=== PATIENT | female | born 1960 | race Caucasian/White ===

== ENCOUNTER → 2017-02-18 | Outpatient (CLI) | payer OTHER ==
[~2017-02-18] MED LIST: ALBU90OI INH; ALBU90OI6 INH; ALPR1; ALPR1 PO; ARIP30 PO; ASPI81CH; ASPI81EC PO; Alprazolam2 MG; BUPR150ER; BUSP10; BUTASPCAFT PO; Bactrim Ds Tab1 EACH PO; CEPH500 PO; CLON.5 PO; CLON1 PO; CLONAZEPAM1 GM; CYCL10 PO; DESV50 PO; DICL75ER PO; DULO60; Diclofenac Sodi25 MG PO; ERGO50000 PO; GABA300 PO; HYDACE10B; HYDACE10B PO; HYDACE5 PO; HYDACE5325 PO; LEVFLO500 PO; LORA1 PO; METF500C PO; METPRE4DP PO; MIRT30ST; MISO100 PO; MISO200 PO; MONT10T PO; NICO7; OLAN2.5 PO; OXYC10ER; OXYC10ER PO; OXYC15ER; PIOG15 PO; PIOG30 PO; PIOG45 PO; POTA10T PO; PRAZ1 PO; PRAZ2 PO; PRAZ5 PO; PROM25 PO; ROXICODONE5 MG PO; RXHYD5325 PO; RXLORA1 PO; Risperdal PO; Roxicodone5 MG PO; SIMV10; SIMV40 PO; SIMV5 PO; Seroquel50 MG PO; TRAM50 PO; Valium5 MG PO; Xanax PO; Zofran Odt4 MG PO
== END | disposition home or self-care (01) ==
LOC: LAB SHORT 13:45
DX: N39.0 Urinary tract infection, site not specified (principal)
CPT/HCPCS: 87086

== ENCOUNTER 2017-03-11 11:01 | Emergency (ER) | payer OTHER ==
[~2017-03-11] VITALS: Ht 162.6 cm; Wt 104.3 kg
[~2017-03-11 11:01] MED LIST changes: -Zofran Odt4 MG PO
[2017-03-11 11:43] LABS: BASOPHILS ABSOLUTE AUTO 0.05 K/mm3 (0.00-0.23); BASOPHILS PERCENT AUTO 1 % (0-2); EOSINOPHILS ABSOLUTE AUTO 0.12 K/mm3 (0.00-0.68); EOSINOPHILS PERCENT AUTO 1 % (0-6); Hemoglobin 14.1 g/dL (11.5-16.0); IMMATURE GRAN ABSOLUTE AUTO 0.03 K/mm3 (0.00-0.10); IMMATURE GRAN PERCENT AUTO 0 % (0-1); LYMPHOCYTES ABSOLUTE AUTO 2.73 K/mm3 (0.84-5.20); LYMPHOCYTES PERCENT AUTO 32 % (21-46); MONOCYTES ABSOLUTE AUTO 0.59 K/mm3 (0.16-1.47); MONOCYTES PERCENT AUTO 7 % (4-13); Mean Corpuscular HGB 32.4 pg (26.0-34.0); Mean Corpuscular HGB Conc 34.4 g/dL (31.5-36.5); Mean Corpuscular Volume 94 fL (80-100); NEUTROPHILS ABSOLUTE AUTO 5.05 K/mm3 (1.96-9.15); NEUTROPHILS PERCENT AUTO 59 % (41-73); Platelet Count 270 K/mm3 (150-400); RDW Coefficient Variation 12.2 % (11.7-14.2); RDW Standard Deviation 42.7 fL (35.1-46.3); Red Blood Cell Count 4.35 M/mm3 (3.80-5.20); White Blood Cell Count 8.57 K/mm3 (4.00-11.30)
[2017-03-11 12:06] LABS: Alanine Aminotransfer (ALT/SGP 25 U/L (12-78); Albumin, Blood 3.9 g/dL (3.4-5.0); Alk Phos 96 U/L (50-136); Anion Gap 13 mmol/L (6-16); Aspartate Aminotrans (AST/SGOT 25 U/L (12-37); Bilirubin, Total 0.6 mg/dL (0.1-1.0); Blood Urea Nitrogen 31 mg/dL (8-24); Bun/Creatinine Ratio 33.3 (12.0-20.0); CO2, Blood 20 mmol/L (21-32); Chloride, Blood 102 mmol/L (98-108); Creatinine, Blood 0.93 mg/dL (0.40-1.00); Globulin, Blood 4.1 g/dL (2.2-4.0); Glomerular Filtration Rate >60 (60-); Glucose, Blood 102 mg/dL (70-99); Potassium, Blood 4.4 mmol/L (3.5-5.5); Sodium, Blood 135 mmol/L (136-145)
[2017-03-11] MEDS ORDERED: Zofran Odt4 MG PO (12:29)
== END 2017-03-11 12:46 | disposition home or self-care (01) ==
LOC: ER 11:01
PROVIDERS: Emergency Medicine
DX: E86.0 Dehydration (principal); R11.2 Nausea with vomiting, unspecified; R19.7 Diarrhea, unspecified; F41.9 Anxiety disorder, unspecified; E11.9 Type 2 diabetes mellitus without complications; F32.9 Major depressive disorder, single episode, unspecified; Z85.3 Personal history of malignant neoplasm of breast; Z88.0 Allergy status to penicillin; Z88.5 Allergy status to narcotic agent; Z91.013 Allergy to seafood; Z88.8 Allergy status to other drugs, medicaments and biological substances; Z79.899 Other long term (current) drug therapy; Z79.84 Long term (current) use of oral hypoglycemic drugs; Z79.82 Long term (current) use of aspirin
CPT/HCPCS: 36415; 80053; 83690; 85025; 96361; 96374; 99283; J2405; J7030

== ENCOUNTER 2018-03-08 12:49 | Emergency (ER) | payer OTHER ==
[~2018-03-08] VITALS: Ht 172.7 cm; Wt 108.4 kg
[~2018-03-08 12:49] MED LIST changes: +Zofran Odt4 MG PO
[2018-03-08 13:32] LABS: BASOPHILS ABSOLUTE AUTO 0.05 K/mm3 (0.00-0.23); BASOPHILS PERCENT AUTO 0 % (0-2); EOSINOPHILS ABSOLUTE AUTO 0.16 K/mm3 (0.00-0.68); EOSINOPHILS PERCENT AUTO 1 % (0-6); Hematocrit 42.5 % (33.0-51.0); Hemoglobin 14.1 g/dL (11.5-16.0); IMMATURE GRAN ABSOLUTE AUTO 0.04 K/mm3 (0.00-0.10); IMMATURE GRAN PERCENT AUTO 0 % (0-1); LYMPHOCYTES ABSOLUTE AUTO 4.26 K/mm3 (0.84-5.20); LYMPHOCYTES PERCENT AUTO 34 % (21-46); MONOCYTES PERCENT AUTO 8 % (4-13); Mean Corpuscular HGB 32.5 pg (26.0-34.0); Mean Corpuscular HGB Conc 33.2 g/dL (31.5-36.5); Mean Corpuscular Volume 98 fL (80-100); Mean Platelet Volume 10.2 fL (9.1-12.4); NEUTROPHILS ABSOLUTE AUTO 7.22 K/mm3 (1.96-9.15); NEUTROPHILS PERCENT AUTO 57 % (41-73); Platelet Count 245 K/mm3 (150-400); RDW Standard Deviation 43.8 fL (35.1-46.3); Red Blood Cell Count 4.34 M/mm3 (3.80-5.20); White Blood Cell Count 12.73 K/mm3 (4.00-11.30)
[2018-03-08 13:48] LABS: Alanine Aminotransfer (ALT/SGP 23 U/L (12-78); Albumin, Blood 3.9 g/dL (3.4-5.0); Albumin/Globulin Ratio 0.9 (0.8-1.8); Alk Phos 103 U/L (50-136); Anion Gap 10 mmol/L (6-16); Aspartate Aminotrans (AST/SGOT 18 U/L (12-37); Bilirubin, Total 0.4 mg/dL (0.1-1.0); Blood Urea Nitrogen 20 mg/dL (8-24); Bun/Creatinine Ratio 20.6 (12.0-20.0); CO2, Blood 23 mmol/L (21-32); Calcium, Blood 9.1 mg/dL (8.5-10.1); Chloride, Blood 105 mmol/L (98-108); Creatinine, Blood 0.97 mg/dL (0.40-1.00); Ethanol (Alcohol), Blood, Med <3 mg/dL; Globulin, Blood 4.3 g/dL (2.2-4.0); Glomerular Filtration Rate >60 (60-); Glucose, Blood 137 mg/dL (70-99); Potassium, Blood 3.8 mmol/L (3.5-5.5); Sodium, Blood 138 mmol/L (136-145); Total Protein, Blood 8.2 g/dL (6.4-8.2)
[2018-03-08 13:52] LABS: Salicylate 3.1 mg/dL (2.8-20.0)
[2018-03-08 13:56] LABS: Acetaminophen, Random <2.0 ug/mL (10.0-30.0)
[2018-03-08 14:01] LABS: Source, Urine Clean Catch
[2018-03-08 14:21] LABS: Appearance, Urine Hazy (Clear); Blood, Urine 5+ (Neg); Color, Urine Yellow (P-Yellow); Glucose Qualitative, Urine Neg (Neg); Ketones, Urine 1+ (Neg); Leukocyte Esterase, Urine 2+ (Neg); Nitrite, Urine Pos (Neg); Protein, Urine 2+ (Neg); Specific Gravity, Urine 1.025 (1.003-1.022); Urobilinogen, Urine NORM (Normal)
[2018-03-08 14:56] LABS: U Amphetamine Screen DETECTED; U Barbituate Screen Not Detected; U Methamphetamine Screen DETECTED
[2018-03-08 14:57] LABS: U Benzodiazapine Screen DETECTED; U Buprenorphine Screen Not Detected; U Cannabinoids Screen Not Detected; U Cocaine Screen Not Detected; U Methadone Screen Not Detected; U Opiates Screen Not Detected; U Oxycodone Screen Not Detected; U Phencyclidine Screen Not Detected; U Propoxyphene Screen Not Detected
[2018-03-08 15:00] LABS: Bilirubin, Urine 1+ (Neg)
[2018-03-08 15:02] LABS: White Blood Cells, Urine 25-50 /hpf (0-5)
[2018-03-08 15:03] LABS: Bacteria Many /hpf; Squamous Epithelial Cells Few /hpf (Few)
[2018-03-08] MEDS ORDERED: Keflex500 MG PO (15:21)
== END 2018-03-08 15:30 | disposition home or self-care (01) ==
LOC: ER 12:49
PROVIDERS: Physician Assistant
DX: N39.0 Urinary tract infection, site not specified (principal); F41.9 Anxiety disorder, unspecified; Z88.0 Allergy status to penicillin; Z88.5 Allergy status to narcotic agent; Z91.013 Allergy to seafood; Z79.899 Other long term (current) drug therapy; Z79.84 Long term (current) use of oral hypoglycemic drugs; Z79.82 Long term (current) use of aspirin; G43.909 Migraine, unspecified, not intractable, without status migrainosus; Z85.3 Personal history of malignant neoplasm of breast; E11.9 Type 2 diabetes mellitus without complications; F32.9 Major depressive disorder, single episode, unspecified; F43.10 Post-traumatic stress disorder, unspecified; F17.210 Nicotine dependence, cigarettes, uncomplicated
CPT/HCPCS: 36415; 80053; 81001; 81025; 84443; 85025; 87077; 87086; 87186; 99284; G0480; Q3014

== ENCOUNTER → 2021-04-25 | Outpatient (CLI) | payer OTHER ==
[~2021-04-25] MED LIST changes: +Keflex500 MG PO
== END ==
LOC: LAB SHORT 14:40
DX: N39.0 Urinary tract infection, site not specified (principal)
CPT/HCPCS: 87077; 87086; 87186

== ENCOUNTER → 2021-05-14 | Outpatient (CLI) | payer OTHER ==
[2021-05-14 20:32] LABS: Alanine Aminotransfer (ALT/SGP 26 U/L (12-78); Albumin, Blood 3.7 g/dL (3.4-5.0); Albumin/Globulin Ratio 0.9 (0.8-1.8); Alk Phos 112 U/L (50-136); Anion Gap 8 mmol/L (6-16); Aspartate Aminotrans (AST/SGOT 20 U/L (12-37); Bilirubin, Total 0.2 mg/dL (0.1-1.0); Blood Urea Nitrogen 35 mg/dL (8-24); Bun/Creatinine Ratio 36.2 (12.0-20.0); CHOL/HDL RATIO 2.5; CO2, Blood 26 mmol/L (21-32); Calcium, Blood 8.8 mg/dL (8.5-10.1); Chloride, Blood 106 mmol/L (98-108); Cholesterol 140 mg/dL (50-200); Creatinine, Blood 0.97 mg/dL (0.40-1.00); Glomerular Filtration Rate 58 (60-); Glucose, Blood 209 mg/dL (70-99); HDL Cholesterol 55 mg/dL (>39); Low Density Lipoprotein Chol 53 mg/dL (0-110); Potassium, Blood 4.5 mmol/L (3.5-5.5); Sodium, Blood 140 mmol/L (136-145); Total Protein, Blood 7.7 g/dL (6.4-8.2); Triglycerides 161 mg/dL (30-160); Very Low Density Lipoprot Chol 32 mg/dL (6-32)
== END | disposition home or self-care (01) ==
LOC: LAB SHORT 11:10
PROVIDERS: Internal Medicine
DX: E78.2 Mixed hyperlipidemia (principal); E11.9 Type 2 diabetes mellitus without complications
CPT/HCPCS: 80053; 80061; 82043; 83036

== ENCOUNTER → 2021-05-30 | Outpatient (CLI) | payer OTHER | END | disposition home or self-care (01) | LOC: LAB 19:21 → LAB SHORT 19:21 | DX: N39.0 Urinary tract infection, site not specified (principal) | CPT/HCPCS: 87077; 87086; 87186 ==

== ENCOUNTER 2021-07-13 15:11 | Inpatient (IN) | payer OTHER ==
[~2021-07-13] VITALS: Ht 175.3 cm; Wt 98.1 kg
[~2021-07-13 15:11] MED LIST changes: -Alprazolam2 MG; +Alprazolam2 MG PO
--- NOTE | 2021-07-13 19:15 | NUR ---
RECEIVED REPORT AND ASSUMED CARE OF PT. SHE IS LYING IN BED WITH HER RIGHT FOOT ELEVATED, SPLINT IN PLACE. PT IS VERBOSE AND SPEAKS FREQUENTLY OF HER PAST, REDIRECTABLE. CALL LIGHT IN REACH.
[2021-07-13] MEDS ORDERED: Cetirizine HCl10 MG PO (19:59)
[2021-07-13 21:30] LABS: BASOPHILS ABSOLUTE AUTO 0.03 K/mm3 (0.00-0.23); BASOPHILS PERCENT AUTO 0 % (0-2); EOSINOPHILS ABSOLUTE AUTO 0.12 K/mm3 (0.00-0.68); EOSINOPHILS PERCENT AUTO 1 % (0-6); Hematocrit 37.9 % (33.0-51.0); Hemoglobin 12.6 g/dL (11.5-16.0); IMMATURE GRAN ABSOLUTE AUTO 0.02 K/mm3 (0.00-0.10); IMMATURE GRAN PERCENT AUTO 0 % (0-1); LYMPHOCYTES ABSOLUTE AUTO 2.35 K/mm3 (0.84-5.20); LYMPHOCYTES PERCENT AUTO 27 % (21-46); MONOCYTES ABSOLUTE AUTO 0.78 K/mm3 (0.16-1.47); MONOCYTES PERCENT AUTO 9 % (4-13); Mean Corpuscular HGB 31.9 pg (26.0-34.0); Mean Corpuscular HGB Conc 33.2 g/dL (31.5-36.5); Mean Corpuscular Volume 96 fL (80-100); NEUTROPHILS ABSOLUTE AUTO 5.29 K/mm3 (1.96-9.15); NEUTROPHILS PERCENT AUTO 62 % (41-73); Platelet Count 191 K/mm3 (150-400); RDW Coefficient Variation 12.7 % (11.7-14.2); RDW Standard Deviation 44.9 fL (35.1-46.3); Red Blood Cell Count 3.95 M/mm3 (3.80-5.20); White Blood Cell Count 8.59 K/mm3 (4.00-11.30)
[2021-07-13 21:47] LABS: Albumin, Blood 3.4 g/dL (3.4-5.0); Albumin/Globulin Ratio 0.9 (0.8-1.8); Bilirubin, Total 0.4 mg/dL (0.1-1.0); Bun/Creatinine Ratio 23.6 (12.0-20.0); Calcium, Blood 9.3 mg/dL (8.5-10.1); Creatinine, Blood 0.89 mg/dL (0.40-1.00); Globulin, Blood 3.8 g/dL (2.2-4.0); Potassium, Blood 3.5 mmol/L (3.5-5.5); Total Protein, Blood 7.2 g/dL (6.4-8.2)
[2021-07-13] MEDS ORDERED: FLUTICASONE PRO16 GM (22:42)
[2021-07-13] MEDS ORDERED: Simvastatin40 MG PO (22:44)
[2021-07-13] MEDS ORDERED: GABAPENTIN600 MG PO (22:51)
[2021-07-14 01:29] LABS: U Amphetamine Screen DETECTED; U Barbituate Screen Not Detected; U Benzodiazapine Screen DETECTED; U Buprenorphine Screen Not Detected; U Cannabinoids Screen Not Detected; U Cocaine Screen Not Detected; U Methadone Screen Not Detected; U Methamphetamine Screen DETECTED; U Opiates Screen Not Detected; U Oxycodone Screen DETECTED; U Phencyclidine Screen Not Detected; U Propoxyphene Screen Not Detected
[2021-07-14 02:46] LABS: SARS-Cov-2 (COVID-19) PCR, MMC NEGATIVE (NEGATIVE)
--- NOTE | 2021-07-14 04:50 | NUR ---
PT ATTEMPTED TO GET OUT OF BED ON HER OWN. SLURRED SPEECH NOTED, NO FOCAL DEFICITS, ABLE TO FOLLOW DIRECTIONS, MOVE ALL EXTREMITIES, AND ASSIST STAFF TO GET ON AND OFF OF BEDPAN AND CHANGE LINENS. VSS. ON-CALL PHYSICIAN NOTIFIED, ORDER OBTAINED FOR VENOUS BLOOD GAS AND TO HOLD MEDICATIONS UNTIL SPEECH CLEARS.
[2021-07-14 05:04] LABS: Bilirubin, Urine Neg (Neg); Blood, Urine 2+ (Neg); Glucose Qualitative, Urine 2+ (Neg); Ketones, Urine Neg (Neg); Leukocyte Esterase, Urine 1+ (Neg); Nitrite, Urine Neg (Neg); Protein, Urine 1+ (Neg); Specific Gravity, Urine 1.025 (1.003-1.022); Urobilinogen, Urine NORM (Normal)
[2021-07-14 05:25] LABS: Appearance, Urine Cloudy (Clear); Color, Urine Yellow (P-Yellow); Squamous Epithelial Cells Not Seen /hpf (Few)
[2021-07-14 05:26] LABS: Amorphous Mod (0-Heavy); Bacteria Mod /hpf; Mucus Light (0-Heavy)
[2021-07-14 06:07] LABS: Base Excess Venous 1.1 mmol/L; Bicarbonate Venous 24.7 mmol/L (24.0-30.0); PCO2 Venous 49.3 mmHg (38-42); PO2 Venous 69.8 mmHg (38-42); pH Blood Venous 7.34 (7.34-7.37)
--- NOTE | 2021-07-14 06:34 | NUR ---
SHIFT SUMMARY: KELSIE AROUSES TO VOICE AND RESPONDS APPROPRIATELY, HOWEVER HER SPEECH IS OCCASIONALLY SLURRED, FOLLOWS COMMANDS. SHE WAS MADE NPO SHORTLY AFTER MIDNIGHT, TOLERATED REGULAR DIET WELL UP UNTIL THAT TIME. SPLINT IN PLACE TO RLE, PT REPORTS "BLISTERS" ON AND AROUND HER RIGHT ANKLE, UNABLE TO VISUALIZE D/T SPLINT. IV TO RIGHT FOREARM PATENT. SHE IS LYING IN BED WITH HER EYES CLOSED AND EVEN, UNLABORED RESPRIATIONS. BED ALARM FOR SAFETY. SHE HAS USED THE BEDPAN DURING THE NIGHT, DENIES ANY DIFFICULTIES URINATING. CALL LIGHT IN REACH. WILL REPORT TO DAY SHIFT RN.
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
--- NOTE | 2021-07-14 18:25 | NUR ---
SHIFT SUMMARY A&OX4/NOT CONFUSED AT THIS TIME & PLEASANT & COOPERATIVE WITH CARE. VSS/RA/CBGS LSS, TATIANA PO, PAIN MANAGED, VOIDING/ATTENDS ON/INCONTINENT, BEDREST/REPOSITIONS SELF WELL. DR KLEIN CONSULTED, REDRESSED R ANKLE WITH SPLINT, PICS ON CHART OF MEDIAL AND LATERAL ANKLE BLISTERS AND BRUISES. PLAN FOR NPO WEDNESDAY MIDNIGHT FOR POSS SURGERY WEDNESDAY. WILL REPORT TO ONCOMING NOC RN.
--- NOTE | 2021-07-14 22:45 | NUR ---
PT STATES THAT SHE HAS HAD "EPISODES", WITNESSED BY A FRIEND, WHERE SHE EXHIBITS "DEMENTIA". WHEN ASKED TO ELABORATE FURTHER, PT STATED THAT SHE SLEEPWALKS SOMETIMES. DISCUSSED THE EPISODE OF CONFUSION SHE EXPERIENCED LAST NIGHT WELL HER MEDICATIONS. PT AGREEABLE TO TRIAL TAKING ONLY SEROQUEL AND PAIN MEDICATION TONIGHT.
--- NOTE | 2021-07-15 07:59 | NUR ---
SHIFT SUMMARY: KELSIE RESTED INTERMITTENTLY DURING THE SHIFT, CALLED APPROPRIATELY FOR THE BED STONE, AND IS TOLERATING PO INTAKE WELL. IV TO R FOREARM PATENT. SPLINT C/D&I, ABLE TO WIGGLE TOES, BRISK CAPILLARY REFILL. SHE DID NOT EXHIBIT ANY EPISODES OF CONFUSION THIS SHIFT. SHE IS LYING IN BED WITH THE CALL LIGHT IN REACH. REPORT GIVEN TO DAY SHIFT RN.
--- NOTE | 2021-07-15 13:57 | NUR ---
Dr Anisha luna, spoke with this RN and senior care manager Nay regarding scheduled surgery tomorrow and care plan after.
--- NOTE | 2021-07-15 17:13 | NUR ---
SHIFT SUMMARY: VSS, NO ACUTE CHANGES, PT REMAINS A/O X 4, PLEASANT/COOPERATIVE, DROWSY T/O THE DAY, SLEPT. RLE TOES WARM WITH CAPILLARY REFIL <3 SECONDS, ABLE TO WIGGLE TOES. SHE REPORTS SHE HAS NOT SLEPT WELL THE PREVIOUS FEW DAYS. PT TOLERATED PO INTAKE WELL, VOIDED WELL WITH BED STONE. PT REPORTS PAIN CONTROLLED TO THE POINT SHE IS ABLE TO SLEEP PER MAR. PT WILL BE NPO AT MIDNIGHT FOR EXPECTED SURGICAL REPAIN TOMORROW.
[2021-07-16 04:39] LABS: BASOPHILS ABSOLUTE AUTO 0.03 K/mm3 (0.00-0.23); BASOPHILS PERCENT AUTO 0 % (0-2); EOSINOPHILS ABSOLUTE AUTO 0.26 K/mm3 (0.00-0.68); EOSINOPHILS PERCENT AUTO 4 % (0-6); Hemoglobin 12.5 g/dL (11.5-16.0); IMMATURE GRAN ABSOLUTE AUTO 0.01 K/mm3 (0.00-0.10); IMMATURE GRAN PERCENT AUTO 0 % (0-1); LYMPHOCYTES ABSOLUTE AUTO 2.58 K/mm3 (0.84-5.20); LYMPHOCYTES PERCENT AUTO 38 % (21-46); MONOCYTES PERCENT AUTO 9 % (4-13); Mean Corpuscular HGB 32.3 pg (26.0-34.0); Mean Corpuscular HGB Conc 32.1 g/dL (31.5-36.5); Mean Platelet Volume 11.2 fL (9.1-12.4); NEUTROPHILS ABSOLUTE AUTO 3.39 K/mm3 (1.96-9.15); NEUTROPHILS PERCENT AUTO 49 % (41-73); Platelet Count 182 K/mm3 (150-400); RDW Coefficient Variation 12.9 % (11.7-14.2); RDW Standard Deviation 47.9 fL (35.1-46.3); Red Blood Cell Count 3.87 M/mm3 (3.80-5.20); White Blood Cell Count 6.87 K/mm3 (4.00-11.30)
[2021-07-16 04:42] LABS: Mean Corpuscular Volume 101 fL (80-100)
[2021-07-16 04:53] LABS: Bun/Creatinine Ratio 29.2 (12.0-20.0); Calcium, Blood 9.2 mg/dL (8.5-10.1); Creatinine, Blood 0.72 mg/dL (0.40-1.00)
--- NOTE | 2021-07-16 05:05 | NUR ---
SUMMARY NO NEW ISSUES. PT PAIN MANGED WELL T/OUT SHIFT. PT HAS BEEN NPO SINCE 0000 HRS. PT CURRENTLY AWAKE IN NO DISTRESS. CALL LIGHTIN REACH.
--- NOTE | 2021-07-16 15:21 | NUR ---
PATIENT IS LEAVING FOR THE OR.
--- NOTE | 2021-07-16 15:38 | NUR ---
DR KLEIN NOTIFIED PT THAT HER SURGERY IS ON HOLD DUE TO A MORE EMERGENT CASE. PT WILL BE TRANSPORTED BACK TO ROOM
--- NOTE | 2021-07-16 16:00 | NUR ---
SHIFT SUMMARY: RIGHT ANKLE FX PATIENT WAS SUPPOSED TO GO TO THE OR BUT AN EMERGENCY CAME UP SO THEY WILL BE DOING THE SURGERY TOMORROW. RIGHT ANKLE IS IN A CAST WITH BING WRAP THAT IS C/D/I. PATIENT DENIES NUMBNESS AND TINGLING. CAN MOVE FINGERS AND TOES. PATIENT IS TOLERATING PO INTAKE AND IS VOIDING. PATIENT IS TEARFUL AND STATING "I WISH IT COULD BE DONE AND OVER WITH ALREADY". DANA IS IN THE ROOM AT THIS TIME. CALLS APPROPRIATELY. PAIN IS MANAGED WITH 50 MCG OF FENT AND 2 PERCOCETS. CALL LIGHT WITHIN REACH. THE PLAN IS TO BE NPO AT MIDNIGHT TONIGHT AND WILL HAVE THE SURGERY TOMORROW.
--- NOTE | 2021-07-16 16:31 | NUR ---
Pt is lying in bed and crying. Pt tells me about her anxiety and how stressed she has been about the surgery and her struggles with feeling rejected. I provide therapeutic listening, anxiety containment, levety, gentle counselor nurses' association and prayer. Pt responds well and is laughing and voicing much appreciation for the time and care. I will continue to remain available.
--- NOTE | 2021-07-17 03:55 | NUR ---
SUMMARY NO NEW ISSUES NOTED. PT DISCOMFORT TX PER EMAR WITH RELIEF. PT HAS BEEN VOIDING WELL. PT HAS BEEN NPO SINCE 000 HRS. PT CALL LIGHT IN REACH.
[2021-07-17 05:15] LABS: BASOPHILS ABSOLUTE AUTO 0.05 K/mm3 (0.00-0.23); BASOPHILS PERCENT AUTO 1 % (0-2); EOSINOPHILS ABSOLUTE AUTO 0.26 K/mm3 (0.00-0.68); EOSINOPHILS PERCENT AUTO 4 % (0-6); Hematocrit 39.7 % (33.0-51.0); Hemoglobin 12.4 g/dL (11.5-16.0); IMMATURE GRAN ABSOLUTE AUTO 0.01 K/mm3 (0.00-0.10); IMMATURE GRAN PERCENT AUTO 0 % (0-1); LYMPHOCYTES ABSOLUTE AUTO 2.53 K/mm3 (0.84-5.20); LYMPHOCYTES PERCENT AUTO 37 % (21-46); MONOCYTES ABSOLUTE AUTO 0.57 K/mm3 (0.16-1.47); MONOCYTES PERCENT AUTO 8 % (4-13); Mean Corpuscular HGB 31.9 pg (26.0-34.0); Mean Corpuscular HGB Conc 31.2 g/dL (31.5-36.5); Mean Corpuscular Volume 102 fL (80-100); Mean Platelet Volume 11.1 fL (9.1-12.4); NEUTROPHILS ABSOLUTE AUTO 3.37 K/mm3 (1.96-9.15); NEUTROPHILS PERCENT AUTO 50 % (41-73); Platelet Count 199 K/mm3 (150-400); RDW Coefficient Variation 12.6 % (11.7-14.2); RDW Standard Deviation 47.7 fL (35.1-46.3); Red Blood Cell Count 3.89 M/mm3 (3.80-5.20); White Blood Cell Count 6.79 K/mm3 (4.00-11.30)
[2021-07-17 05:47] LABS: Bun/Creatinine Ratio 28.5 (12.0-20.0); Calcium, Blood 9.1 mg/dL (8.5-10.1); Creatinine, Blood 0.81 mg/dL (0.40-1.00); Potassium, Blood 4.2 mmol/L (3.5-5.5)
--- NOTE | 2021-07-17 16:32 | NUR ---
Patient was anxious upon entering the rm. Therapeutic listening and prayer are provided. Pt shows signs of increased peace.
--- NOTE | 2021-07-17 17:45 | NUR ---
SHIFT SUMMARY PT A/O X3; PLEASANT AND COOPERATIVE WITH CARE. DR. WINCHESTER CONSULTED THE PATIENT AND DRAINED FOOT BLISTER AT BEDSIDE. DR. WINCHESTER RECOMMENDS DELAYING THE SURGERY SO THE BLISTER CAN HEAL BEFORE PROCEEDING. PT IS AGREEABLE TO THIS. BING WRAP AND GAUZE DRESSING IN PLACE TO THE R FOOT, CDI. R LEG ELEVATED. VSS.
--- NOTE | 2021-07-18 05:23 | NUR ---
SUMMARY NO NEW ISSUES NOTED. PT PAIN MANAGED WELL T/OUT SHIFT. PT HAS BEEN VOIDING WELL AND TAKING IN PO FLUIDS. PT IN GOOD SPIRITS. PT CURRENTLY SLEEPING IN NO DISTRESS. CALL LIGHT IN REACH.
--- NOTE | 2021-07-18 19:13 | NUR ---
SHIFT SUMMARY: RIGHT ANKLE FX NO SIGNIFICANT CHANGES. A&OX4. PAIN IS MANAGED WITH 2 PERCOCETS. RIGHT ANKLE IS IN A CAST AND BING WRAP THAT IS C/D/I. DENIES NUMBNESS AND TINGLING. CAN MOVE FINGERS AND TOES. TOLERATING PO INTAKE AND IS VOIDING. PATIENT TOLERATES BEDPAN FOR THE BATHROOM. CALLS APPROPRIATELY. PATIENT DID WORK WITH PT TODAY AND WAS A 1-2 PERSON ASSIST WITH FWW AND GAIT BELT WITH A STAND PIVOT. PATIENT IS NON WT BEARING ON RIGHT FOOT. CALL LIGHT WITHIN REACH. THE PLAN IS TO HAVE SURGERY ON HER RIGHT ANKLE SOMETIME NEXT WEEK. WILL CONTINUE PAIN MANAGEMENT.
--- NOTE | 2021-07-19 03:30 | NUR ---
SHIFT SUMMARY PT HAS SLEPT OFF AND ON T/O SHIFT. PT WITH INTERMITTENT PAIN IN RIGHT ANKLE, WELL CONTROLLED WITH NORCO. CAST IN PLACE TO RIGHT ANKLE, PT HAS ELEVATED ON PILLOWS. PT EATING/DRINKING AND VOIDING WITHOUT DIFFICULTY. PLAN IS FOR SURGERY ON ANKLE WEDNESDAY. PT PLESANT AND COOPERATIVE WITH CARE. BED IN LOWEST POSITION, CALL LIGHT WITHIN REACH.
--- NOTE | 2021-07-19 16:14 | NUR ---
SHIFT SUMMARY PT A&OX4, VSS/RA, CBGS PER EMAR. R ANKLE CAST DRY/INTACT, WIGGLES TOES, CAP REFILL WNL, ELEVATED. TATIANA PO, VOIDING WELL, STAND PIVOT TO BSC/CHAIR-UP T/O MOST OF SHIFT BUT DEFINITELY FOR MEALS. HAS BEEN CALLING APPROPRIATELY TO USE BSC, HAS NOT BEEN INCONTINENT THIS ENTIRE SHIFT. PAIN MANAGED WITH NORCO 10 MG. WILL REPORT TO ONCOMING NOC RN.
--- NOTE | 2021-07-20 03:43 | NUR ---
SHIFT SUMMARY NO ACUTE CHANGES TO REPORT THIS SHIFT. PT HAS RESTED MOST OF THE NIGHT. R ANKLE REMAINS SPLINTED, AND UNCHANGED. PT REPORTS SENSATION AND CAN WIGGLE TOES. PT MEDICATED FOR PAIN PRN PER EMAR. PT ANXIOUS AT TIMES BUT IS COOPERATIVE WITH CARE. PLAN IS FOR SURGERY ON WEDNESDAY OR WEDNESDAY. RESTFUL NIGHT OVERALL, BED IN LOWEST POSITION, CALL LIGHT WITHIN REACH.
--- NOTE | 2021-07-20 15:22 | NUR ---
SHIFT SUMMARY PT A&OX4, VSS/RA, CBGS PER EMAR, TATIANA PO, STAND PIVOT TO CHAIR/BSC, VOIDING WELL, PAIN MANAGED WITH NORCO 10 MG PRN. PLAN FOR NPO Wednesday, HOLD LOVENOX, FOR POSS ORIF R ANKLE. WILL REPORT TO ONCOMING NOC RN
--- NOTE | 2021-07-21 04:06 | NUR ---
SHIFT SUMMARY A/O X4. NO ACUTE CHANGES THIS SHIFT, VITALS STABLE. PAIN MANAGED W/ PO PAIN MEDICATIONS. NO N/V REPORTED. NPO SINCE MIDNIGHT. PLAN FOR ORIF OF R ANKLE TODAY. VOIDING WELL. PLEASANT AND COOPERATIVE W/ CARE. WILL CONTINUE TO REPORT TO ONCOMING RN.
--- NOTE | 2021-07-21 12:23 | NUR ---
PATIENT TO DAY SURGERY VIA [facility]
--- NOTE | 2021-07-21 12:55 | NUR ---
PT TRANSPORTED TO [facility]. AGREES WITH PLANNED SURGERY. PT STATES SHE SHE IS ANXIOUS ABOUT THE SURGERY.
--- NOTE | 2021-07-21 15:15 | NUR ---
07/21/21 1515 Alda Vera PATIENT ALSO RECEIVED 1GM OF VANCO PRIOR TO ARRIVING IN THE OR.
--- NOTE | 2021-07-21 18:55 | NUR ---
PATIENT RETURNED TO ROOM FROM PACU. SPLINT & BING WRAP IN PLACE TO R FOOT. WIGGLES ALL TOES & HAS FULL SENSATION TO BOTH FEET. PATIENT DENIES PAIN AT THIS TIME, "FEELS WEIRD" FROM ANESTHESIA. OXIMIZER IN PLACE WITH 6L O2, SATS >90%, RESP RATE IS 16, DENIES SOB.
[2021-07-22 05:13] LABS: BASOPHILS ABSOLUTE AUTO 0.02 K/mm3 (0.00-0.23); BASOPHILS PERCENT AUTO 0 % (0-2); EOSINOPHILS PERCENT AUTO 0 % (0-6); Hematocrit 39.4 % (33.0-51.0); Hemoglobin 12.7 g/dL (11.5-16.0); IMMATURE GRAN ABSOLUTE AUTO 0.03 K/mm3 (0.00-0.10); IMMATURE GRAN PERCENT AUTO 0 % (0-1); LYMPHOCYTES ABSOLUTE AUTO 1.47 K/mm3 (0.84-5.20); LYMPHOCYTES PERCENT AUTO 13 % (21-46); MONOCYTES ABSOLUTE AUTO 1.08 K/mm3 (0.16-1.47); MONOCYTES PERCENT AUTO 10 % (4-13); Mean Corpuscular HGB 32.2 pg (26.0-34.0); Mean Corpuscular HGB Conc 32.2 g/dL (31.5-36.5); Mean Corpuscular Volume 100 fL (80-100); NEUTROPHILS ABSOLUTE AUTO 8.61 K/mm3 (1.96-9.15); NEUTROPHILS PERCENT AUTO 77 % (41-73); Platelet Count 245 K/mm3 (150-400); RDW Coefficient Variation 12.2 % (11.7-14.2); RDW Standard Deviation 44.8 fL (35.1-46.3); Red Blood Cell Count 3.94 M/mm3 (3.80-5.20); White Blood Cell Count 11.21 K/mm3 (4.00-11.30)
--- NOTE | 2021-07-22 05:23 | NUR ---
SHIFT SUMMARY POD1 ORIF OF L ANKLE- ORTHOGLASS AND BING IN PLACE, C/D/I. VITAL SIGNS STABLE. VOIDING WELL. TOLERATING PO INTAKE. PAIN MANAGED W/ PO PAIN MEDICATION PER EMAR. WEANED O2 FROM 6 TO 4L NASAL CANULA, SATS MAINTAINING ABOVE 93%. PT REPORTS FEELING MUCH BETTER THIS AM. PLEASANT AND COOPERATIVE W/ CARE. WILL CONTINUE TO MONITOR AND REPORT TO ONCOMING RN.
[2021-07-22 05:37] LABS: Bun/Creatinine Ratio 26.7 (12.0-20.0); Calcium, Blood 9.4 mg/dL (8.5-10.1); Creatinine, Blood 1.2 mg/dL (0.40-1.00); Potassium, Blood 4.8 mmol/L (3.5-5.5)
--- NOTE | 2021-07-22 10:48 | NUR ---
PATIENT REFUSES TO TRY SITTING AT EDGE OF BED OR UP TO CHAIR, STATES "I CANT GET UP, THE DOCTOR SAID NO WEIGHT ON MY LEG". THIS RN REASSURED AND EDUCATED PATIENT THAT SHE IS ABLE TO USE HER NON-SURGICAL LEG (LEFT LEG) AND HER ARMS WITH A WALKER TO MOVE OR THAT THIS RN/STAFF CAN ASSIST HER TO EGDE OF BED. PATIENT STILL REFUSES, SAYS "MAYBE LATER". EDUCATED PATIENT ON IMPORTANCE OF MOBILITY.
--- NOTE | 2021-07-22 11:36 | NUR ---
PHYSICAL THERAY IN WITH PATIENT. PATIENT AGREED TO SIT IN CHAIR FOR MEALS. 1P MIN ASSIT TO CHAIR W/ FWW & GB
--- NOTE | 2021-07-22 17:54 | NUR ---
SHIFT SUMMARY POD 1 ORIF OF R ANKLE. SPLINT & BING WRAP IN PLACE TO R ANKLE, ELEVATED ON PILLOW WHILE AT REST. PATIENT WORKED WITH PHYSICAL THERAPY TODAY AND DID WELL, UP TO CHAIR & BSC, 1P ASSIST W/ FWW & GB. STRICT NON-WEIGHT BEARING ON R LEG. ENCOURAGED PATIENT TO BE UP TO CHAIR FOR MEALS, STATES SHE IS AGREEABLE ALTHOUGH REFUSED CHAIR FOR DINNER. PATIENT IS STILL STRUGGLING WITH PAIN, PERCOCET & IV DILAUDID PER EMAR. REPORTS PAIN 8-9/10 ABOUT EVERY 2 HOURS, EVEN WHEN SITTING IN BED HAVING CONVERSATION AND APPEARING TO BE COMFORTABLE. EDUCATED PATIENT ON TRYING TO WEAN OFF OF IV PAIN MEDICATION, STILL REQUESTS THROUGHOUT SHIFT. CALLS APPROPRIATELY. WILL REPORT TO ONCOMING RN.
--- NOTE | 2021-07-22 22:24 | NUR ---
TENDERNESS PT REPORTS TENDERNESS TO IV SITE, AREA IS SLIGHTLY RED, BUT NOT LEAKING. SHE IS REQUESTING THAT I REMOVE IV. SHE DOES NOT WANT TO HAVE ANOTHER ONE PLACED.
--- NOTE | 2021-07-23 05:09 | NUR ---
SHIFT SUMMARY NO ACUTE CHANGES TO REPORT THIS SHIFT, PT MEDICATED PRN PER EMAR. LEG REMAINS IN CAST, PT ABLE TO WIGGLE TOES, NO N/T. PT IV PULLED THIS SHIFT DUE TO TENDERNESS AND IRRITATION. PT DOES NOT WANT TO HAVE ANOTHER ONE PLACED, AND IS REFUSING. PT HAS BEEN UP AND AMBULATING NON WEIGHT WEARING TO RIGHT LEG. VITALS STABLE. BED IN LOWEST POSITION, CALL LIGHT WITHIN REACH.
[2021-07-23 05:47] LABS: BASOPHILS ABSOLUTE AUTO 0.03 K/mm3 (0.00-0.23); BASOPHILS PERCENT AUTO 0 % (0-2); EOSINOPHILS ABSOLUTE AUTO 0.16 K/mm3 (0.00-0.68); EOSINOPHILS PERCENT AUTO 2 % (0-6); Hematocrit 35.3 % (33.0-51.0); Hemoglobin 11.3 g/dL (11.5-16.0); IMMATURE GRAN ABSOLUTE AUTO 0.02 K/mm3 (0.00-0.10); IMMATURE GRAN PERCENT AUTO 0 % (0-1); LYMPHOCYTES ABSOLUTE AUTO 2.55 K/mm3 (0.84-5.20); LYMPHOCYTES PERCENT AUTO 27 % (21-46); MONOCYTES PERCENT AUTO 10 % (4-13); Mean Corpuscular HGB 32.2 pg (26.0-34.0); Mean Corpuscular Volume 101 fL (80-100); Mean Platelet Volume 10.9 fL (9.1-12.4); NEUTROPHILS ABSOLUTE AUTO 5.83 K/mm3 (1.96-9.15); NEUTROPHILS PERCENT AUTO 61 % (41-73); Platelet Count 208 K/mm3 (150-400); RDW Coefficient Variation 12.2 % (11.7-14.2); Red Blood Cell Count 3.51 M/mm3 (3.80-5.20); White Blood Cell Count 9.49 K/mm3 (4.00-11.30)
[2021-07-23 05:55] LABS: Bun/Creatinine Ratio 33.9 (12.0-20.0); Calcium, Blood 8.9 mg/dL (8.5-10.1); Creatinine, Blood 0.83 mg/dL (0.40-1.00)
--- NOTE | 2021-07-23 14:32 | NUR ---
Pt. is in bed and welcomes my visit. Pt. is unsettled about being homeless. Facilitated a life review and established rapport. The pt. displayed evidence of resilience and the would begin to display evidence of anxiety. Gave pastoral admitting counselor with a calming presence and establised rapport. Prayed with Pt. Pt. verbalized gratitude for the spiritual care visit.
--- NOTE | 2021-07-23 15:05 | NUR ---
SHIFT SUMMARY: POD 2 RIGHT ORIF ANKLE NO SIGNIFICANT CHANGES. PATIENT IS A&OX4. VS ARE WNL AND IS ON RA. PAIN IS MANAGED WITH 2 PO PERCOCETS. PATIENT IS A SBA WITH FWW TO BSC AND TO CHAIR. PATIENT IS NON WT BEARING ON THE RIGHT FOOT. RIGHT FOOT HAS BING WRAP AND A CAST THAT IS C/D/I. TOES ARE WARM AND PATIENT CAN MOVE FINGERS AND TOES WHEN ASKED. SHE IS TOLERATING PO INTAKE AND IS VOIDING. CALLS APPROPRIATELY. CALL LIGHT WITHIN REACH. THE PLAN IS TO EVENTUALLY BE ACCEPTED INTO A SNF WHEN ONE IS AVAILABLE.
--- NOTE | 2021-07-24 06:05 | NUR ---
PT IS A&OX4, USES BP TO VOID, IS ABLE TO MAKE NEEDS KNOWN. SURGICAL ORIF OF THE L ANKLE, CSM INTACT AND NO NUMBNESS OR TINGLING REPORTED. NO ACUTE CHANGES THIS SHIFT. RESTS BETWEEN CARES, IS ABLE TO SLEEP 7+ HOURS THIS SHIFT. TOLERATING DIET. WILL CONTINUE TO MONITOR THIS PT AND GIVE REPORT TO ONCOMING NURSE.
--- NOTE | 2021-07-24 08:12 | NUR ---
pt laying in bed with right leg in cast and elevated on pillows, a/ox3, pleasant and cooperative with care, follows commands well, reports pain at 7/10 but doing ok, reports a good night, lungs are clear in upper swain, dim in bases, resp even and unlabored, no cough noted or reported, hrr, no edema noted, cap refill <3sec on right foot, pulses +2, btx4, abd flat soft nontender, voids without diff, skin c/w/d, maew, sha, call light in reach.
--- NOTE | 2021-07-24 10:25 | NUR ---
pt on bsc, had a large brown stool, PT in room and stood her and pivot to recliner chair, Dr. Lancaster in to see her. call light in reach.
--- NOTE | 2021-07-24 14:58 | NUR ---
pt sat up for a few hr this am, back in bed resting quietly. medicated for pain once. call light in reac.
--- NOTE | 2021-07-25 06:41 | NUR ---
SHIFT SUMMARY NO ACUTE CHANGES OVERNIGHT. PT SLEPT GOOD OVERNIGHT. STAND AND PVOT IN BSC. TOLERATES PAIN OVERNIGHT, PT STS PAIN LEVEL AROUND 7-8/10 BUT APPEARS COMFORTABLE. PT ABLE TO MOVE ALL EXTREMITIES. PT MANAGED PAIN WITH 2 TAB PERCOCET. PT HAD ONE BEFORE BED AND THIS MORNING. VOIDS ADEQUATELY. AOX4. TOLERATES PO INTAKE DENIES N/V. VSS. DENIES CHEST PAIN AND SOB. CALL LIGHT WITHIN REACH. WILL CONTINUE TO MONITOR AND WILL PROVIDE REPORT TO ONCOMING NURSE.
--- NOTE | 2021-07-25 15:27 | NUR ---
SHIFT SUMMARY: POD 5 RIGHT ANKLE ORIF NO SIGNIFICANT CHANGES. A&OX4. RIGHT ANKLE IS NON WT BEARING AND IS A SBA WITH FWW AND MAINLY VERBAL CUES. PAIN IS MANAGED WITH 2 PERCOCETS. RIGHT ANKLE HAS A HARD CAST THAT IS C/D/I. PATIENT CAN MOVE FINGERS AND TOES. PEDAL PULSES ARE STRONG. PATIENT IS TOLERATING PO INTAKE AND IS VOIDING WITH BSC. CALLS APPROPRIATELY. CALL LIGHT WITHIN REACH. PATIENT IS LAYING IN BED WITH HER RIGHT LEG RESTING ON PILLOWS. THE PLAN IS TO BE DISCHARGED TO A SNF WHEN POSSIBLE AND TO CONTINUE PAIN MANAGEMENT/ PT THERAPY.
--- NOTE | 2021-07-26 04:47 | NUR ---
PT IS A&OX4, MODERATE ASSIST TO BSC AND IS ABLE TO MAKE NEEDS KNOWN. NO ACUTE CHANGES THIS SHIFT. PT RESTS BETWEEN CARES, SLEEPS 7+ HOURS THIS SHIFT. NO COMPLAINTS OF PAIN, HAS PRN PERCOCET AVAILABLE. POST OP DAY 6 FOR ORIF R ANKLE BING BANDAGE AND SPLINT INPLACE, CSM INTACT. PT CALLS APPROPRIATELY. PLAN TO D/C TO SNF WHEN POSSIBLE. WILL CONTINUE TO MONITOR AND GIVE REPORT TO ONCOMING NURSE.
[2021-07-26 06:07] LABS: Calcium, Blood 9.7 mg/dL (8.5-10.1); Creatinine, Blood 0.82 mg/dL (0.40-1.00); Potassium, Blood 3.9 mmol/L (3.5-5.5)
--- NOTE | 2021-07-26 07:45 | NUR ---
PATIENT REFUSES TO SIT IN CHAIR FOR BREAKFAST. STATES SHE WOULD RATHER SIT UP IN BED.
--- NOTE | 2021-07-26 17:21 | NUR ---
SHIFT SUMMARY PATIENT IS POD 5 ORIF OF R ANKLE. R ANKLE IN SPLINT W/ BING WRAP, C/D/I. PATIENT IS DOING WELL W/ PHYSICAL THERAPY AND TOELRATING TRANSFERS WELL, SBA W/ GB & FWW TO [facility], NEEDS REMINDERS OF NON-WEIGHT BEARING ON R FOOT. PATIENT STILL REPORTS MODERATE PAIN TO R FOOT, CONSISTENTLY 8/10 ABOUR EVERY 4-5 HOURS, MANAGED WITH 2 PERCOCET. EATING, DRINKING, & VOIDING WELL. NO ACUTE CHANGES IN PATIENT STATUS, STILL AWAITING SNF PLACEMENT. WILL REPORT TO ONCOMING RN.
--- NOTE | 2021-07-27 03:55 | NUR ---
SHIFT SUMMARY NO ACUTE CHANGES OVERNIGHT. PT SLEPT GOOD. TOLERATING PO INTAKE DENIES N/V. VSS. DENIES CP AND SOB. NWB ON RLE. DENIES N/T. AMBULATES/ TRANSFERS TO BS WITH FWW AND GB. AOX4. VOIDING WITHOUT ISSUE. PT REPORTS PAIN 8/10, PAIN MANAGED WITH 2 TAB PERCOCET WITH PAIN RELIEF (6/10 PAIN LEVEL). USE CALL LIGHT APPROPRIATEELY. CALL LIGHT WITHIN REACH. WILL PROVIDE REPORT TO ONCOMING NURSE.
--- NOTE | 2021-07-27 15:56 | NUR ---
SHIFT SUMMARY NO ACUTE CHANGES THIS SHIFT. POD 6 ORIF R ANKLE. VSS ON RA, BLOOD SUGARS LOW 100'S & 90'S, NO INSULIN COVERAGE. PAIN MANAGED WITH 2 TABS OF PERCOCET PER EMAR. SPLINT & BING WRAP DRESSING REMAINS IN PLACE TO R ANKLE. PATIENT TRANSFERRING TO [facility] [place] W/ GB & FWW SBA. STILL AWAITING PLACEMENT. WILL REPORT TO ONCOMING RN.
--- NOTE | 2021-07-28 03:53 | NUR ---
SHIFT SUMMARY NO ACUTE CHANGES OVERNIGHT. PT HAD A GOOD SLEEP. REPORTS MODERATE PAIN 6-8/10 PAIN LEVEL. PAIN MANAGED WITH 2 TAB PERCOCET. UP IN THE BSC, VOIDING ADEQUATELY. TOLERATING PO INTAKE. SLEPT GOOD OVERNIGHT. DENIES N/V. PT C/O ITCHING ALL OVER. FULL BED BATH LAST NIGHT. LINEN CHANGED. SHAMPOO. PT REPORTS RELIEF. CBG WNL. CALL LIGHT WITHIN REACH. WILL PROVIDE REPORT TO ONCOMING NURSE.
--- NOTE | 2021-07-28 14:58 | NUR ---
DRESSING CHANGED GAUZE ROLL AND BING WRAP CHANGED TO RIGHT ANKLE. POSTERIOR SPLINT KEPT IN PLACE.
--- NOTE | 2021-07-28 18:27 | NUR ---
SHIFT SUMMARY PATIENT ALERT AND ORIENTED THROUGHOUT SHIFT. INDEPENDENT IN THE ROOM MAINTAINING NWB STATUS TO RIGHT LOWER ANKLE. TOLERATING ADA DIET AND LIQUIDS. PAIN CONTROLLED WITH PO PAIN MEDS. DRESSING TO RIGHT LOWER LEG CHANGED THIS SHIFT. POSTERIOR SPLINT IN PLACE UNDER BING WRAP. CLEARED FOR DISCHARGE BY MEDICAL AND ORTHO. WAITING FOR SNF BED.
--- NOTE | 2021-07-29 04:04 | NUR ---
SHIFT SUMMARY NO ACUTE CHANGES OVERNIGHT. VSS. AMBULATES BSC WITH 1 SBA. NWB ON RLE. VOIDING. PT REPORTS PAIN 8/10, IMPROVED WITH 2 TAB PERCOCET. AOX4. TATIANA PO INTAKE. DENIES N/V. PT ALSO DENIES NUMBNESS AND TINGLING. DENIES DIZZINESS. CALL LIGHT WITHIN REACH. PLAN: AWAITING FOR PLACEMENT. WILL PROVIDE REPORT TO ONCOMING NURSE.
--- NOTE | 2021-07-29 17:47 | NUR ---
SHIFT SUMMARY POD 8 ORIF R ANKLE. SPLINT & BING WRAP DRESSING IN PLACE, C/D/I, CHANEGD YESTERDAY PER REPORT. PATIENT REPORTS PAIN TO BE MANAGED WITH THE 2 PERCOCET Q4 PER EMAR. NO ACUTE CHANGES THIS SHIFT. PATIENT WAS SEEN BY A STAFF MEMBER OF [facility] TODAY AND HOPEFULLY FOR ACCEPTANCE IN TO THEIR FACILITY HOWEVER, PATIENT WAS TOLD THIS AFTERNOON THAT [facility] DENIED HER AND PATIENT WAS TEARFUL AND APPEARED UPSET ABOUT THIS NEWS. REASSURED AND ENCOURAGED PATIENT, REMIANED PLEASANT WITH STAFF BUT STATES "I DONT THINK I NEED TO BE HERE ANYMORE, WHY CANT THEY JUST TAKE ME". PATIENT CONTINUES TO TRANSFER WELL TO BS STAND BY ASSIST WITH GB & FWW. EATING, DRINKING, & VOIDING WELL. CALLS APPROPRIATELY. WILL REPORT TO ONCOMING RN.
--- NOTE | 2021-07-30 03:46 | NUR ---
RIG HAND SUMMARY NO ACUTE CHANGES THIS SHIFT. PT AAOX4 AND PLEASANT. EMOTIONAL AND ANXIOUS AT TIMES BUT IMPROVED AFTER HS MEDS. VERY COOPERATIVE. PT ABLE TO GET TO BSC INDEPENDENTLY. MEDICATED FOR R FOOT/LEG PAIN Q4H WITH 2 TABS PERCOCET. PT HAS BEEN ABLE TO SLEEP OFF/ON THROUGH THE NIGHT. AWAITING PLACEMENT.
--- NOTE | 2021-07-30 16:20 | NUR ---
SHIFT SUMMARY: POD 9 RIGHT ANKLE ORIF NO SIGNIFICANT CHANGES. A&OX4. PAIN IS MANAGED WITH 2 PERCOCETS PO. RIGHT ANKLE IS IN A CAST WITH BING WRAP THAT IS C/D/I. PEDAL PULSES ARE STRONG. PATIENT IS ABLE TO MOVE FINGERS AND TOES. PATIENT IS INDEP TO THE BSC SINCE SHE IS NON WT BEARING. TOLERATING PO INTAKE AND IS VOIDING/PASSING GAS. CALLS APPROPRIATELY. CALL LIGHT WITHIN REACH. THE PLAN IS TO GET HER DISCHARGED TO A SNF WHEN AVAILABLE AND ALSO WHEN PATIENT ISN'T DENIED TO A FACILITY. OTHERWISE CONTINUING PAIN MANAGEMENT AND DOING PHYSICAL THERAPY EXERCISES.
--- NOTE | 2021-07-31 04:52 | NUR ---
CONGREGATIONAL CARE PASTOR SUMMARY NO ACUTE CHANGES THIS SHIFT. PT INDEPENDENT IN ROOM TO BSC. MEDICATING FOR RLE PAIN Q4H WIH 2 TABS PERCOCET. WAITING PLACEMENT.
--- NOTE | 2021-07-31 17:55 | NUR ---
SHIFT SUMMARY HOLLY DORSEY CHANGES THIS SHIFT. PATIENT REMAINS PLEASANT & COOPERATIVE WITH STAFF. EMOTIONAL AT TIMES ABOUT "TAKING UP A BED HERE", IS HOPEFUL TO FIND A PLACE FACILITY TO ACCEPT HER. EATING, DRINKIN, VOIDING WELL. BM TODAY. PAIN MANAGED PER EMAR. CALLS APPROPRIATELY. WILL REPORT TO ONCOMING RN.
--- NOTE | 2021-08-01 05:48 | NUR ---
SERVICE CLERK SUMMARY NO ACUTE CHANGES THIS SHIFT. PT AAOX4 AND INDEPENDENT IN ROOM. MEDICATED FOR PAIN Q4H PER EMAR. WAITING PLACMENT FOR DISCHARGE.
--- NOTE | 2021-08-01 15:28 | NUR ---
SHIFT SUMMARY NO ACUTE CHANGES THIS SHIFT. PAIN MANAGED PER EMAR W/ 2 PERCOCET. IND TO BSC. EATING, DRINKING, & VOIDING WELL. LARGE BM TODAY. NO NEW CONCERNS. WILL REPORT TO ONCOMING RN
--- NOTE | 2021-08-01 17:09 | NUR ---
1528 ASSUMED CARE OF PATIENT. PT LYING IN BED WATCHING TV. PT DENIES ANY NEEDS AT THIS TIME
--- NOTE | 2021-08-01 18:29 | NUR ---
PT WATCHING TV, DENIES ANY NEEDS- STATES SHE JUST FEELS TIRED TODAY THOUGH STATES SHE SLEPT WELL. AWAITING PLACEMENT
--- NOTE | 2021-08-02 05:07 | NUR ---
ASSUMED CARE OF THE PT AT 1900. PT IS A&OX4, INDEPENDENT WITH CARES AND IS ABLE TO MAKE NEEDS KNOWN. NO ACUTE CHANGES THIS SHIFT. PRN PERCOCET FOR PAIN. SLEEPS 7+ HOURS THIS SHIFT. VSS. WAITING ON PLACEMENT.
--- NOTE | 2021-08-02 14:55 | NUR ---
SHIFT SUMMARY PT A&OX4, VSS/RA/CBGS CNI, PLEASANT & COOPERATIVE WITH CARE. POD12 R ANKLE REPAIR, SPLINT/BING CDI, NWB. PT ABLE TO STAND PIVOT TO CHAIR/BSC/BED WITH FWW. TATIANA PO. VOIDING WELL. PAIN MANAGED WELL WITH PERC 10 MG Q4, AND ADVIL Q6. WASHED AND COMBED OUT HAIR TODAY, COMPLETELY FREE OF TANGLES. WILL REPORT TO NEXT RN.
--- NOTE | 2021-08-02 15:40 | NUR ---
ASSUMED CARE OF PT FROM FAREED Macedo RN.
--- NOTE | 2021-08-02 18:53 | NUR ---
REPORT GIVEN TO ONCOMING RN.
--- NOTE | 2021-08-03 05:35 | NUR ---
ASSUMED CARE AT 1900 HRS. NO ACUTE CHANGES THIS SHIFT. PT IS A&OX4, INDEPENDENT IN ROOM WITH CARES AND IS ABLE TO MAKE NEEDS KNOWN. RIGHT ANKLE BANDAGE IS CDI, BING WRAP IN PLACE, CSM INTACT. PAIN CONTROLLED WITH PRN PERCOCET 2 TABS. WAITING FOR PLACEMENT POSSIBLE SNF FOR REHAB. BLOOD SUGAR CONTINUES TO BE WELL CONTROLLED WITH DIET AND ORAL MEDICATION, NO SLIDING SCALE COVERAGE NEEDED. VSS. WILL CONTINUE TO MONITOR.
--- NOTE | 2021-08-03 16:02 | NUR ---
SHIFT SUMMARY PT A&OX4, VSS/RA, CBG CHANGED TO QAM ONLY. TATIANA PO, VOIDING WELL IN BSC/LARGE BM TODAY. POD11 R ANKLE ORIF, NWB, DRESSING CDI. PT STANDS AND PIVOTS NWB TO BED/BSC/CHAIR W/FWW. SHOWERED TODAY AND WASHED HAIR. PAIN MANAGED WITH PERC 10 MG AND ADVIL. PT WILL NEED TO BE SEEN BY ORTHO SURGEON FOR POSS STAPLE REMOVAL THIS WEEK. WILL REPORT TO ONCOMING CLIFF MOELLER.
--- NOTE | 2021-08-04 05:59 | NUR ---
ASSUMED CARE OF PT AT 1900. NO ACUTE CHANGES THIS SHIFT. PT IS A&O, INDEPENDENT WITH CARES AND IS ABLE TO VERBALIZE NEEDS. HAS BING IN PLACE ON R ANLKE, CSM INTACT. PAIN IS CONTROLLED WITH PRN PERCOCET 2 TABS. PT SLEEPS 7+ HOURS THIS SHIFT. VSS. WILL CONTINUE TO MONITOR THIS PT AND GIVE HANDOFF REPORT TO ONCOMING RN.
--- NOTE | 2021-08-04 16:35 | NUR ---
SHIFT SUMMARY NO CHANGES. ALERT AND ORIENTED THROUGHOUT SHIFT. INDEPENDENT IN ROOM MAINTAINING NWB TO RIGHT LEG. JOSE REMOVED AND SPLINT REWRAPPED WITH GAUZE ROLL AND BING. MEDICATING FOR PAIN PER EMAR. POSSIBLE DISCHARGE TO [facility]IV[facility] Wednesday08/07/21.
--- NOTE | 2021-08-05 04:28 | NUR ---
SHIFT SUMMARY A/O X4- IND IN ROOM. POD15 R ORIF OF TIB/FIB FX-JOSE REMOVED YESTERDAY BY DAY SHIFT RN, DRESSING C/D/I. TREATED PER EMAR FOR PAIN. NO ACUTE EVENTS OVER NIGHT. STABLE VITAL SIGNS. VOIDING WELL AND TOLERATING PO INTAKE. PLAN FOR PT TO GO TO ASSISTED LIVING FACILITY/STUDIO WEDNESDAY PER DAY RN. WILL CONTINUE TO MONITOR AND REPORT TO ONCOMING RN.
--- NOTE | 2021-08-05 14:54 | NUR ---
SHIFT [facility] NO ACUTE CHANGES THIS SHIFT. PAIN MANAGED PER EMAR WITH 2 PERCOCET. IND TO BSC. EATING, DRINKING, & VOIDING WELL. PATIENT EMOTIONAL TODAY RELATING TO DISCHARGE PLAN CHANGES. WILL REPORT TO ONCOMING RN.
[2021-08-05] MEDS ORDERED: IBUP400 PO (15:51)
[2021-08-05] MEDS ORDERED: Acetaminophen650 M1 PO (15:52)
[2021-08-05] MEDS ORDERED: Percocet 5-3251 EACH PO (15:52)
--- NOTE | 2021-08-05 17:51 | NUR ---
DISCHARGE NOTE: PATIENT WAS EDUCATED ON DISCHARGE INSTRUCTIONS. PATIENT VERBALIZED UNDERSTANDING OF INSTRUCTIONS. HARD PERSCRIPTION WAS PLACED IN INSTRUCTIONS FOLDER. PAIN IS MANAGED WITH PO PAIN MEDICATIONS. RIGHT ANKLE IS IN A CAST WITH BING WRAP ON THE OUTSIDE THAT IS C/D/I. PATIENT WAS GIVEN A SURGICAL SHOE TO PREVENT THE CAST FROM BEING TORN UP. PATIENT DENIES NUMBNESS AND TINGLING TO RIGHT FOOT. PATIENT CAN MOVE FINGERS AND TOES. SHE IS A SBA WITH FWW. PATIENT IS TOLERATING PO INTAKE AND IS VOIDING. PATIENT HAS ITEMS IN THE ROOM GATHERED AND IS DRESSED. SHE IS BEING WHEELCHAIRED OUT TO A [employer] CAB THAT WILL TAKE HER TO THE MOTEL SHE WILL BE STAYING AT FOR 2 DAYS. PATIENT EXPRESSED GRADITUDE TO ALL THE STAFF WHILE SHE WAS STAYING HERE. PATIENT HAS HER FWW WITH HER WELL. PATIENT WILL BE SEEING HER SON TOMORROW TO RECIEVE HER DOG.
== END 2021-08-05 17:24 | disposition home or self-care (01) | DRG 494 ==
LOC: ER 15:11 → SURS 17:37
PROVIDERS: Family Medicine; Internal Medicine; Orthopaedic Surgery; ADMIT Internal Medicine
PROC: 0QSG04Z Reposition Right Tibia with Internal Fixation Device, Open Approach (ICD-10-PCS; 2021-07-21)
PROC: 0QSJ04Z Reposition Right Fibula with Internal Fixation Device, Open Approach (ICD-10-PCS; principal; 2021-07-21 13:30)
DX: S82.851A Displaced trimalleolar fracture of right lower leg, initial encounter for closed fracture (principal); Z20.822 Contact with and (suspected) exposure to COVID-19; R09.81 Nasal congestion; F15.10 Other stimulant abuse, uncomplicated; E11.42 Type 2 diabetes mellitus with diabetic polyneuropathy; J44.9 Chronic obstructive pulmonary disease, unspecified; F41.9 Anxiety disorder, unspecified; F32.A Depression, unspecified; F43.10 Post-traumatic stress disorder, unspecified; E78.5 Hyperlipidemia, unspecified; Z96.642 Presence of left artificial hip joint; I10 Essential (primary) hypertension; M17.11 Unilateral primary osteoarthritis, right knee; F17.210 Nicotine dependence, cigarettes, uncomplicated; Z88.5 Allergy status to narcotic agent; Z91.013 Allergy to seafood; Z88.0 Allergy status to penicillin; Z88.8 Allergy status to other drugs, medicaments and biological substances; Z59.00 Homelessness unspecified; Z85.3 Personal history of malignant neoplasm of breast; Z79.84 Long term (current) use of oral hypoglycemic drugs; Z79.82 Long term (current) use of aspirin; Z79.899 Other long term (current) drug therapy; Z90.710 Acquired absence of both cervix and uterus; Z98.890 Other specified postprocedural states; W18.30XA Fall on same level, unspecified, initial encounter
CPT/HCPCS: 29515; 36415; 73562-RT; 73600; 73610; 73700; 76377; 80048; 80053; 81001; 82803; 82947; 83036; 85025; 87077; 87086; 87186; 93005; 93010; 94640; 94664; 94760; 96376; 97110; 97116; 97161; 97530; 99284-25; A9270; C1713; G0378; J1100; J1170; J1650; J2250; J2405; J2704; J2765; J3010; J3370; J7030; J7060; J7120; U0004

== ENCOUNTER → 2021-08-14 | Outpatient (CLI) | payer OTHER ==
[~2021-08-14] MED LIST changes: +ALOGLIPTIN25 M1; +Acetaminophen650 M1 PO; +Cetirizine HCl10 MG PO; +Clonazepam0.25 MG PO; +FLUTICASONE PRO16 GM; +GABAPENTIN600 MG PO; +IBUP400 PO; +Percocet 5-3251 EACH PO; +Simvastatin40 MG PO
== END | disposition home or self-care (01) ==
LOC: LAB SHORT 12:00 → LAB 12:00
DX: R30.9 Painful micturition, unspecified (principal)
CPT/HCPCS: 87077; 87086; 87186

== ENCOUNTER 2021-08-19 17:29 | Emergency (ER) | payer OTHER ==
[~2021-08-19] VITALS: Ht 175.3 cm; Wt 97.5 kg
[~2021-08-19 17:29] MED LIST changes: -ALOGLIPTIN25 M1; -Clonazepam0.25 MG PO
[2021-08-19 20:01] LABS: BASOPHILS ABSOLUTE AUTO 0.04 K/mm3 (0.00-0.23); BASOPHILS PERCENT AUTO 0 % (0-2); EOSINOPHILS PERCENT AUTO 5 % (0-6); Hematocrit 36.2 % (33.0-51.0); Hemoglobin 11.4 g/dL (11.5-16.0); IMMATURE GRAN ABSOLUTE AUTO 0.02 K/mm3 (0.00-0.10); IMMATURE GRAN PERCENT AUTO 0 % (0-1); LYMPHOCYTES ABSOLUTE AUTO 2.85 K/mm3 (0.84-5.20); LYMPHOCYTES PERCENT AUTO 31 % (21-46); MONOCYTES PERCENT AUTO 8 % (4-13); Mean Corpuscular HGB 31.8 pg (26.0-34.0); Mean Corpuscular HGB Conc 31.5 g/dL (31.5-36.5); Mean Corpuscular Volume 101 fL (80-100); Mean Platelet Volume 10.4 fL (9.1-12.4); NEUTROPHILS ABSOLUTE AUTO 5.11 K/mm3 (1.96-9.15); NEUTROPHILS PERCENT AUTO 56 % (41-73); Platelet Count 260 K/mm3 (150-400); RDW Coefficient Variation 13.2 % (11.7-14.2); RDW Standard Deviation 47.9 fL (35.1-46.3); Red Blood Cell Count 3.59 M/mm3 (3.80-5.20); White Blood Cell Count 9.22 K/mm3 (4.00-11.30)
[2021-08-19 20:21] LABS: Albumin, Blood 3.3 g/dL (3.4-5.0); Albumin/Globulin Ratio 0.7 (0.8-1.8); Bilirubin, Total 0.3 mg/dL (0.1-1.0); Bun/Creatinine Ratio 25.5 (12.0-20.0); Calcium, Blood 9.2 mg/dL (8.5-10.1); Creatinine, Blood 0.82 mg/dL (0.40-1.00); Globulin, Blood 4.6 g/dL (2.2-4.0); Potassium, Blood 4.4 mmol/L (3.5-5.5); Total Protein, Blood 7.9 g/dL (6.4-8.2)
[2021-08-19 22:39] LABS: C-REACTIVE PROTEIN, EXT RANGE 7.32 mg/dL (0.000-0.300)
== END 2021-08-19 23:45 | disposition home or self-care (01) ==
LOC: ER 17:29
PROVIDERS: Student in an Organized Health Care Education/Training Program
DX: M25.571 Pain in right ankle and joints of right foot (principal); M25.471 Effusion, right ankle; E11.42 Type 2 diabetes mellitus with diabetic polyneuropathy; F32.A Depression, unspecified; F41.9 Anxiety disorder, unspecified; Z79.899 Other long term (current) drug therapy; Z79.84 Long term (current) use of oral hypoglycemic drugs; Z88.8 Allergy status to other drugs, medicaments and biological substances; Z88.5 Allergy status to narcotic agent; Z88.0 Allergy status to penicillin; Z91.013 Allergy to seafood
CPT/HCPCS: 36415; 73600; 80053; 85025; 85651; 86140; 93971; 99284-25

== ENCOUNTER 2021-09-12 10:36 | Day surgery (SDC) | payer OTHER ==
[~2021-09-12] VITALS: Ht 172.7 cm; Wt 94.8 kg
--- NOTE | 2021-09-12 12:02 | NUR ---
09/12/21 1202 Britney Smith ROPIVACAINE 0.5% 30ML MIXED & VERIFIED IN OR W/ EPI 0.15ML PER ORDER TO MAKE ROPIVACAINE 0.5% 1:200,000 FOR INJECTION AT [facility] BY DR POWELL. 30 MLS INJECTED AT [facility]
== END 2021-09-12 13:48 | disposition home or self-care (01) ==
LOC: ORSCSDS 10:36
PROVIDERS: Podiatrist Foot & Ankle Surgery
PROC: 0SPF04Z Removal of Internal Fixation Device from Right Ankle Joint, Open Approach (ICD-10-PCS; principal; 2021-09-12 11:45)
PROC: 0QSG04Z Reposition Right Tibia with Internal Fixation Device, Open Approach (ICD-10-PCS; principal; 2021-09-12 11:45)
DX: S82.851D Displaced trimalleolar fracture of right lower leg, subsequent encounter for closed fracture with routine healing (principal); T84.84XD Pain due to internal orthopedic prosthetic devices, implants and grafts, subsequent encounter; J45.909 Unspecified asthma, uncomplicated; F17.210 Nicotine dependence, cigarettes, uncomplicated; E11.9 Type 2 diabetes mellitus without complications; Z79.899 Other long term (current) drug therapy
CPT/HCPCS: 82947; C1713; J0171; J0690; J1100; J2250; J2405; J2704; J2795; J3010

== ENCOUNTER 2021-10-03 10:29 | Day surgery (SDC) | payer OTHER ==
[~2021-10-03] VITALS: Ht 172.7 cm; Wt 98.3 kg
[2021-10-03] MEDS ORDERED: Clonazepam0.25 MG PO (11:34)
[2021-10-03] MEDS ORDERED: DICL75ER PO (11:35)
[2021-10-03] MEDS ORDERED: ALOGLIPTIN25 M1 (11:36)
--- NOTE | 2021-10-03 13:03 | NUR ---
10/03/21 1303 EZIO BELCHER RN NSC AND RN TCR REMOVED PRCUT CAST AND DID CHLORHEXADENE SCRUP TO RIGH FOOT AND ANKLE PER DR LOPEZ
--- NOTE | 2021-10-03 13:53 | NUR ---
10/03/21 1353 BÁRBARA SALINAS 0.15MG OF EPI (1MG/1ML) ADDED TO 30MLS OF ROPIVACAINE 0.5% TO CREATE A LOCAL SOLUTION OF ROPIVACAINE 0.5% WITH EPI 1:200,000.
== END 2021-10-03 14:43 | disposition home or self-care (01) ==
LOC: ORSCSDS 10:29
PROVIDERS: Podiatrist Foot & Ankle Surgery
PROC: 0SPF04Z Removal of Internal Fixation Device from Right Ankle Joint, Open Approach (ICD-10-PCS; principal; 2021-10-03 12:00)
DX: T84.84XA Pain due to internal orthopedic prosthetic devices, implants and grafts, initial encounter (principal); S82.851D Displaced trimalleolar fracture of right lower leg, subsequent encounter for closed fracture with routine healing; I10 Essential (primary) hypertension; E11.9 Type 2 diabetes mellitus without complications; J45.909 Unspecified asthma, uncomplicated; F17.210 Nicotine dependence, cigarettes, uncomplicated; E66.9 Obesity, unspecified; Z68.39 Body mass index [BMI] 39.0-39.9, adult; E78.5 Hyperlipidemia, unspecified; Z79.84 Long term (current) use of oral hypoglycemic drugs; Z79.899 Other long term (current) drug therapy
CPT/HCPCS: 82947; J0171; J0690; J1100; J2250; J2370; J2405; J2704; J2795; J3010; J7120

== ENCOUNTER 2022-01-29 04:08 | Inpatient (IN) | payer OTHER ==
[~2022-01-29] VITALS: Ht 103.3 cm; Wt 95.2 kg
[~2022-01-29 04:08] MED LIST changes: +ALOGLIPTIN25 M1 PO; +Clonazepam0.25 MG PO; +QUETIAPINE FUM400 M1 PO; -Seroquel50 MG PO
[2022-01-29 04:25] LABS: BASOPHILS ABSOLUTE AUTO 0.04 K/mm3 (0.00-0.23); BASOPHILS PERCENT AUTO 1 % (0-2); EOSINOPHILS ABSOLUTE AUTO 0.13 K/mm3 (0.00-0.68); EOSINOPHILS PERCENT AUTO 2 % (0-6); Hematocrit 41.1 % (33.0-51.0); Hemoglobin 13.5 g/dL (11.5-16.0); IMMATURE GRAN ABSOLUTE AUTO 0.03 K/mm3 (0.00-0.10); IMMATURE GRAN PERCENT AUTO 0 % (0-1); LYMPHOCYTES ABSOLUTE AUTO 1.68 K/mm3 (0.84-5.20); LYMPHOCYTES PERCENT AUTO 20 % (21-46); MONOCYTES ABSOLUTE AUTO 0.75 K/mm3 (0.16-1.47); MONOCYTES PERCENT AUTO 9 % (4-13); Mean Corpuscular HGB 32.4 pg (26.0-34.0); Mean Corpuscular HGB Conc 32.8 g/dL (31.5-36.5); Mean Corpuscular Volume 99 fL (80-100); Mean Platelet Volume 11.2 fL (9.1-12.4); NEUTROPHILS ABSOLUTE AUTO 5.72 K/mm3 (1.96-9.15); NEUTROPHILS PERCENT AUTO 68 % (41-73); Platelet Count 170 K/mm3 (150-400); RDW Coefficient Variation 13.8 % (11.7-14.2); RDW Standard Deviation 49.9 fL (35.1-46.3); Red Blood Cell Count 4.17 M/mm3 (3.80-5.20); White Blood Cell Count 8.35 K/mm3 (4.00-11.30)
[2022-01-29 05:00] LABS: Albumin, Blood 3.3 g/dL (3.4-5.0); Albumin/Globulin Ratio 0.7 (0.8-1.8); Bilirubin, Total 0.3 mg/dL (0.1-1.0); Bun/Creatinine Ratio 25.6 (12.0-20.0); Calcium, Blood 9.9 mg/dL (8.5-10.1); Creatinine, Blood 0.9 mg/dL (0.40-1.00); Globulin, Blood 4.5 g/dL (2.2-4.0); Potassium, Blood 4.3 mmol/L (3.5-5.5); Total Protein, Blood 7.8 g/dL (6.4-8.2)
[2022-01-29 07:19] LABS: Influenza A, PCR NEGATIVE (NEGATIVE); Influenza B, PCR NEGATIVE (NEGATIVE); SARS-Cov-2 (COVID-19) PCR, MMC NEGATIVE (NEGATIVE)
[2022-01-29 08:01] LABS: Resp Syncytial Virus, PCR POSITIVE (NEGATIVE)
[2022-01-29 08:13] LABS: Source, Urine Clean Catch
[2022-01-29 08:55] LABS: Appearance, Urine Hazy (Clear); Bilirubin, Urine Neg (Neg); Blood, Urine 2+ (Neg); Color, Urine Yellow (P-Yellow); Glucose Qualitative, Urine 3+ (Neg); Ketones, Urine Neg (Neg); Leukocyte Esterase, Urine Neg (Neg); Nitrite, Urine Pos (Neg); Protein, Urine 1+ (Neg); Urobilinogen, Urine NORM (Normal)
[2022-01-29 09:11] LABS: Bacteria Many /hpf; Red Blood Cells, Urine 0-2 /hpf (0-2); Squamous Epithelial Cells Few /hpf (Few)
[2022-01-29] MEDS ORDERED: ALPRAZOLAM2 M1 PO (10:11)
[2022-01-29] MEDS ORDERED: CALCIUM CARBON650 MG PO (10:12)
[2022-01-29] MEDS ORDERED: Vitamin D1000 UNI1 PO (10:13)
[2022-01-29] MEDS ORDERED: Percocet 5-3251 EACH PO (11:42)
--- NOTE | 2022-01-29 18:35 | NUR ---
PATIENT A/OX4, UP WITH FWW AND SBA. CONTACT PRECAUTIONS FOR RSV. VSS, 3LO2 TO MAINTAIN SATS. HARSH PRODUCTIVE COUGH, COUGH MEDICINE GIVEN X1 TODAY WITH GOOD RELIEF. PATIENT REPORTS ABDOMINAL/FLANK PAIN AND CHRONIC R ANKLE PAIN FROM MULTIPLE SURGERIES. PEROCET GIVEN X1 TO TREAT. ACHS BLOOD SUGARS, STARTED ON SEMGLEE TODAY DUE TO ELEVATED BLOOD SUGARS ALONG WITH SS INSULIN. PATIENT IS PLEASANT AND COOPERATIVE WITH CARE AND CALLS APPROPRIATELY FOR ASSISTANCE.
--- NOTE | 2022-01-30 03:51 | NUR ---
0330 PATIENT HAD SHORT RUN V TACH UP TO THE 160'S. WAS SLEEPING AND WOKE EASILY WHEN THIS RN WENT IN TO CHECK ON HER. NO COMPLAINTS OF PAIN, PRESSURE OR MORE SOB THAN SHE CAME IN FOR. NOTIFIED. STAT MG ORDERED. WILL NOTIFY OF ANY ABNORMALS AND CONTINUE TO MONITOR
--- NOTE | 2022-01-30 08:08 | NUR ---
NO FURTHER EPISODES OF VTACH OVERNIGHT. MAG LEVEL WAS 1.6, K WAS NOT DRAWN THIS MORMING. NO CHEST PAIN OR PRESSURE WITH THE BRIEF ARRHYTHMIA. BREATHING IMPROVED ALSO WITH THE FREQUENT RT TX. SHE COULD REALLY BENEFIT FROM SOME TESSALON OR GUAFENISEN DM. CURRENTLY, S HE HAS NONE
--- NOTE | 2022-01-30 17:48 | NUR ---
ALERT AND ORIENTED X4, MAKES NEEDS KNOWN, VERY TALKITIVE AND HYPERACTIVE, MULTIPLE COUGHING EPISODES, REPORTS RIB PAIN FROM COUGHING, MEDICATED FOR RIB AND HEADACHE PAIN, PERCOCET, LORATIDINE. ACTIVE BT, FAVORS THE RIGHT ANKLE, HOME O2 EVALUATION DONE, PATIENT REQUIRES 5L OXYGEN WHEN BEING DISCHARGED HOME, LS COARSE, HARSH BARKING COUGH, MINIMAL SPUTUMN. CALL LIGHT WITH IN REACH, WILL RELAY TO PM SUNNI
--- NOTE | 2022-01-31 07:33 | NUR ---
tavo had a better night. she was less anxious, and consequently slept better. only issue was that she kept losing her 02, and her sats would drop into the mid to low 80's. she is independent in her room, and observing her isolation status. patient does well with 5mg oxycodone at her scheduled intervals
--- NOTE | 2022-01-31 18:32 | NUR ---
ALERT AND ORIENTED, MAKES NEEDS KNOWN, WAS REMOVING OXYGEN AND AMBULATING TO THE BATHROOM, SATS DROP TO 80%, EDUCATED TO BREATH IN NOSE AND OUT MOUTH, RECOVERED SLOWLY, INCREASED OXYGEN TO 6L, BED ALARM ON TO MAKE SURE PATIENT IS ASSISTED TO BATHROOM. INCREASED ANXIETY EARLIER TODAY, EMOTIONAL AND CRAVING A CIGARETTE, MEDICATED WITH XANAX. DR GATES ROUNDED ON PATIENT TODAY, STARTED GUIAFIESEN. CALL LIGHT WITH IN REACH, WILL RELAY TO PM SUNNI
[2022-02-01 05:04] LABS: BASOPHILS ABSOLUTE AUTO 0.01 K/mm3 (0.00-0.23); BASOPHILS PERCENT AUTO 0 % (0-2); EOSINOPHILS PERCENT AUTO 0 % (0-6); Hematocrit 41.1 % (33.0-51.0); Hemoglobin 13.2 g/dL (11.5-16.0); IMMATURE GRAN PERCENT AUTO 1 % (0-1); LYMPHOCYTES ABSOLUTE AUTO 1.02 K/mm3 (0.84-5.20); LYMPHOCYTES PERCENT AUTO 11 % (21-46); MONOCYTES ABSOLUTE AUTO 0.42 K/mm3 (0.16-1.47); MONOCYTES PERCENT AUTO 5 % (4-13); Mean Corpuscular HGB 31.9 pg (26.0-34.0); Mean Corpuscular HGB Conc 32.1 g/dL (31.5-36.5); Mean Corpuscular Volume 99 fL (80-100); Mean Platelet Volume 11.1 fL (9.1-12.4); NEUTROPHILS ABSOLUTE AUTO 7.85 K/mm3 (1.96-9.15); NEUTROPHILS PERCENT AUTO 83 % (41-73); Platelet Count 158 K/mm3 (150-400); RDW Coefficient Variation 13.2 % (11.7-14.2); RDW Standard Deviation 48.2 fL (35.1-46.3); Red Blood Cell Count 4.14 M/mm3 (3.80-5.20)
[2022-02-01 05:33] LABS: Albumin, Blood 3.1 g/dL (3.4-5.0); Albumin/Globulin Ratio 0.7 (0.8-1.8); Bilirubin, Total 0.2 mg/dL (0.1-1.0); Bun/Creatinine Ratio 42.9 (12.0-20.0); Calcium, Blood 8.8 mg/dL (8.5-10.1); Creatinine, Blood 0.93 mg/dL (0.40-1.00); Globulin, Blood 4.5 g/dL (2.2-4.0); Potassium, Blood 4.9 mmol/L (3.5-5.5); Total Protein, Blood 7.6 g/dL (6.4-8.2)
--- NOTE | 2022-02-01 05:35 | NUR ---
SHIFT SUMMARY 61YR F ADMITTED ON 01/29/22 FOR RSV. FULL CODE. NO ACUTE CHANGES THIS SHIFT. PT HAS BEEN CALLING APPROPRIATELY FOR ASSISTANCE TO BATHROOM AND HAS NOT TAKEN HER OXYGEN OFF. SHE IS PLEASANT AND COOPERATIVE AND APPEARS TO BE IN GOOD SPIRITS. SHE STATES SHE IS CONCERNED ABOUT HER DOG AND SHE MISSES HIM. SHE SLEPT OFF AND ON THROUGHOUT THE NIGHT. SHE IS COUGHING FAIRLY HARD AT TIMES BUT THE FREQUENCY SEEMS TO BE GETTING LESS.BED IN LOW POSITION AND CALL LIGHT WITHIN REACH.
--- NOTE | 2022-02-01 11:31 | NUR ---
REPORTED TO DR ESTRADA BS 462, LAST BM 01/28/22, MEDICATION CHANGES TO BE ENTERED BY DR ESTRADA
--- NOTE | 2022-02-01 17:26 | NUR ---
MAKES NEEDS KNOWN, EMOTIONAL CRYING AND THEN TURN TO RIGHTOUS BEHAVIOR. ALERT AND ORIENTED, VERY TALKATIVE, STARTED COLACE, SENNA, MIRALAXA, LAST BM01/28/22. BS >450, STARTED LANTUS AND DECREASED STEROIDS. MEDICATED FOR ANKLE AND HEADACHE WITH PERCOCET, STARTED NICOTINE PATCH. DR ESTRADA ROUND X2 ON PATIENT. HUMIDIFIER ADDED TO NC OXYGEN. LS COARSE, INCREASED COUGHING, MINIMAL SPUTUMN CLEAR COLORED. CALL LIGHT WITH IN REACH, WILL RELAY TO PM RN
--- NOTE | 2022-02-02 05:28 | NUR ---
SUMMARY: PT A/OX4, CALLS APPROPRIATELY TO SPECIFY NEEDS AND IS PLEASANT AND COOPERATIVE W/CARE. REQ'S SBA OOB TOILET BUT IS IMPULSIVE TO TOILET AT TIMES, BED ALARM ON FOR FALL RISK. SHE REPORTED GENERALIZED PAIN W/PERCOCET RECIEVED FOR TOLERABLE RELIEF. SHE ALSO REQUESTED XANAX AT HS FOR SLEEP/ANXIETY. BOWEL ARBEN MEDS RECIEVED, NO BM THIS SHIFT. PT REMAINS ON 5L HUMIDIFIED O2 W/O S/S DESATS TONIGHT. OCC MOIST HACKING COUGH PERSISTS. LS ARE COARSE W/WHEEZES, RT PROVIDING BREATHING TX'S PRN. NO ACUTE CHANGES, VSS/AFEBRILE. WCTM AND REPORT TO DAY RN.
--- NOTE | 2022-02-02 16:47 | NUR ---
SHIFT SUMMARY A&OX4, COOPERATIVE WITH CARE, PLEASANT. IND/SBA TO BATHROOM. RSV (+). LUNGS SOUNDS COARSE IN RIGHT LOBES, DIM/CLEAR IN LEFT. OCCASIONAL PRODUCTIVE COUGH, THICK ZHOU SPUTUM. AC/HS WITH CBGS IN THE UPPER 200'S. LBM DURING THIS SHIFT. PT COMPLAINED OF 3-5/10 PAIN TO HEAD, ABDOMEN, AND R FOOT/ANKLE. MEDICATED WITH PERCOCET PER EMAR. VITALS CONSISTENT DURING LAST 24HRS. NO COMPLAINTS OF CP OR PRESSURE. NO ACUTE CHANGES DURING THIS SHIFT. CURRENTLY RESTING COMFORTABLY IN BED, CALL LIGHT IN REACH.
--- NOTE | 2022-02-03 04:31 | NUR ---
SUMMARY: PT A/OX4, IS SBA/INDEPENDENT IN ROOM AND CALLS APPROPRIATELY TO SPECIFY NEEDS. SHE'S RSV (+) AND REMAINS ON 5L HUMIDIFIED O2 W/SPO2 WNL. LS ARE COARSE TO R.UPPER LOBES AND CLEAR/DIMINSHED ELSEWERE T/O. PT CONT'S TO HAVE OCC HARSH HACKING COUGH W/THICK ZHOU PRODUCTIVE SPUTUM. IV STEROIDS RECIEVED AND RT PROVIDING BREATHING TX'S PRN. CBG'S REMAIN ELEVATED R/T STEROIDS BUT SHE WAS COMMENCED ON GLUCOPHAGE AND STAFF ARE MONITORING FOR EFFECT. PRN PERCOCET WAS RECEIVED FOR TOLERABLE RELIFE OF 5/10 RIB/BACK PAIN FROM COUGHING AND XANAX WAS PROVIDED PER REQUEST AT HS FOR SLEEP. SHE'S NSR AT 70'S BPM ON TELEMETRY W/VSS AND AFEBRILE. NO ACUTE CHANGES. WCTM AND REPORT TO DAY RN.
[2022-02-03 06:58] LABS: Hematocrit 45.1 % (33.0-51.0); Hemoglobin 14.8 g/dL (11.5-16.0); Mean Corpuscular HGB 31.8 pg (26.0-34.0); Mean Corpuscular HGB Conc 32.8 g/dL (31.5-36.5); Mean Corpuscular Volume 97 fL (80-100); Mean Platelet Volume 11.1 fL (9.1-12.4); Platelet Count 193 K/mm3 (150-400); RDW Coefficient Variation 13.2 % (11.7-14.2); Red Blood Cell Count 4.66 M/mm3 (3.80-5.20); White Blood Cell Count 9.79 K/mm3 (4.00-11.30)
[2022-02-03 07:17] LABS: Albumin, Blood 3.1 g/dL (3.4-5.0); Albumin/Globulin Ratio 0.7 (0.8-1.8); Bilirubin, Total 0.3 mg/dL (0.1-1.0); Bun/Creatinine Ratio 45.8 (12.0-20.0); Calcium, Blood 8.7 mg/dL (8.5-10.1); Creatinine, Blood 0.9 mg/dL (0.40-1.00); Globulin, Blood 4.5 g/dL (2.2-4.0); Potassium, Blood 4.5 mmol/L (3.5-5.5); Total Protein, Blood 7.6 g/dL (6.4-8.2)
--- NOTE | 2022-02-03 16:26 | NUR ---
SHIFT SUMMARY A&OX4, COOPERATIVE. PT COMPLAINED OF PAIN TO RIB/UPPER ABDOMINAL AREA T/O SHIFT, MEDICATED WITH PERCOCET Q4. STATES "I JUST DON'T FEEL GOOD. I THNK IT'S THE STEROIDS." SKIN CLAMMY BUT AFEBRILE. LUNGS ARE DIMINISHED WITH INSPIRATORY WHEEZES ON R UPPER LOBE. PT CONTINUES TO HAVE A DRY COUGH, CAUSING HER PAIN. SOFT- 1+ PITTING EDEMA TO BLE. PT ON TELE, SR 70-80'S T/O SHIFT WITH NO EVENTS PER [employer] PUBLIC RELATIONS DIRECTOR. DENIES CHEST PAIN/PRESSURE. USING THE BATHROOM INDEPENDENTLY. CBG'S IN MID 200'S T/O SHIFT. NO ACUTE CHANGES THIS SHIFT. PT VERBALIZED CONCERNS WITH POTENTIAL DISCHARGE TOMORROW. SHE FEELS LIKE SHE SHOULDN'T BE HOME ALONE WITH NO FAMILY SUPPORT. HOME 02 EVAL WILL BE NEEDED PRIOR TO DC. PT IS CURRENTLY RESTING WITH LEGS ELEVATED. CALL LIGHT IN REACH.
--- NOTE | 2022-02-04 04:06 | NUR ---
SHIFT MOSTLY UNREMARKABLE. PATIENT TOOK 2100 MEDICATIONS WITHOUT DIFFICULTY. AT TIME OF ADMINISTRATION, PATIENT WAS VERY ANXIOUS AND WAS UNCOMFORTABLE WITH THE IDEA OF DISCHARGE TODAY GIVEN THAT SHE DID NOT FEEL HEALTHY ENOUGH TO TAKE CARE OF HERSELF. NOTEWORTHY THAT 1 HOUR AFTER ADMINISTRATION OF EVENING MEDICATIONS (INCLUDING PERCOCET AND XANAX) PATIENT WAS MUCH LESS ANXIOUS AND HAD NO COMPLAINTS R/T DISCHARGE TODAY. REASSURED PATIENT THAT SHE WOULD HAVE THE OPPURTUNITY TO TALK WITH DOCTOR BEFORE DISCHARGE TO VOICE CONCERNS. CALL LIGHT LEFT WITHIN REACH.
[2022-02-04 04:26] LABS: Hematocrit 45.2 % (33.0-51.0); Hemoglobin 14.9 g/dL (11.5-16.0); Mean Corpuscular Volume 97 fL (80-100); Mean Platelet Volume 10.7 fL (9.1-12.4); Platelet Count 191 K/mm3 (150-400); RDW Coefficient Variation 13.2 % (11.7-14.2); RDW Standard Deviation 47.3 fL (35.1-46.3); Red Blood Cell Count 4.66 M/mm3 (3.80-5.20); White Blood Cell Count 10.52 K/mm3 (4.00-11.30)
[2022-02-04 04:48] LABS: Bun/Creatinine Ratio 47.6 (12.0-20.0); Calcium, Blood 9.2 mg/dL (8.5-10.1); Creatinine, Blood 0.99 mg/dL (0.40-1.00)
--- NOTE | 2022-02-04 18:22 | NUR ---
PATIENT HAS DEEP CONGESTED COUGH THAT IS NOT PRODUCTIVE. LS HAVE SOME SCATTERED CRACKLES. PATIENT TOOK PERCOCET FOR PAIN A COUPLE TIMES THIS SHIFT. EFFECTIVELY TREATING PAIN. PATIENT IS LOOKING AT POTENTIAL DC TOMORROW. SHE LIVES IN THE [facility]. THE DIRECTOR OF THE COMMUNITY ([place] -[phone]) ALERTED THIS DIGITAL MARKETING SPECIALIST THAT THE PATIENT WOULD NEED TO WALK TO A [id number] ABOUT 200 YARDS TO USE A BR IF DISCHARGED. SHE SAID THAT THERE MAY BE FUNDING AVAILABLE TO HELP HOUSE IN A HOTEL FOR SHORT TIME IF THAT WOULD BE BENEFICIAL. VM WAS LEFT WITH CM3 AT 6.30PM.
[2022-02-05] MEDS ORDERED: Nicoderm Cq1 EAC1 TOP (16:10)
[2022-02-05] MEDS ORDERED: GUAI600T33 PO (16:10)
[2022-02-05] MEDS ORDERED: PRED20 PO (16:11)
--- NOTE | 2022-02-05 16:59 | NUR ---
DISCHARGE SUMMARY: PT SET UP WITH HOME OXYGEN THERAPY. O2 TANKS DELIVERED. PT EDUCATED ON DISCHARGE PLAN AND MEDICATIONS. PT VU. PT ASSISTED WITH PACKING UP BELONGINGS. PT ESCORTED TO [employer] VIA WHEELCHAIR WEARING PORTABLE O2. PT ABLE TO SELF TX INTO CAR WELL.
== END 2022-02-05 16:33 | disposition home or self-care (01) | DRG 189 ==
LOC: ER 04:08 → MEDS 06:27
PROVIDERS: Emergency Medicine; Internal Medicine; Student in an Organized Health Care Education/Training Program; ADMIT Family Medicine
DX: J96.01 Acute respiratory failure with hypoxia (principal); N39.0 Urinary tract infection, site not specified; J44.1 Chronic obstructive pulmonary disease with (acute) exacerbation; B97.4 Respiratory syncytial virus as the cause of diseases classified elsewhere; G43.909 Migraine, unspecified, not intractable, without status migrainosus; C50.919 Malignant neoplasm of unspecified site of unspecified female breast; F32.A Depression, unspecified; F43.10 Post-traumatic stress disorder, unspecified; F41.9 Anxiety disorder, unspecified; E11.42 Type 2 diabetes mellitus with diabetic polyneuropathy; F17.210 Nicotine dependence, cigarettes, uncomplicated; F15.10 Other stimulant abuse, uncomplicated; E11.65 Type 2 diabetes mellitus with hyperglycemia; E78.5 Hyperlipidemia, unspecified; B96.20 Unspecified Escherichia coli [E. coli] as the cause of diseases classified elsewhere; Z20.822 Contact with and (suspected) exposure to COVID-19; Z96.642 Presence of left artificial hip joint; S82.851D Displaced trimalleolar fracture of right lower leg, subsequent encounter for closed fracture with routine healing; Z23 Encounter for immunization; Z88.0 Allergy status to penicillin; Z88.8 Allergy status to other drugs, medicaments and biological substances; Z88.5 Allergy status to narcotic agent; Z91.013 Allergy to seafood; Z79.899 Other long term (current) drug therapy; Z79.84 Long term (current) use of oral hypoglycemic drugs; Z79.51 Long term (current) use of inhaled steroids; Z79.52 Long term (current) use of systemic steroids; Z98.890 Other specified postprocedural states; Z90.710 Acquired absence of both cervix and uterus; Z71.6 Tobacco abuse counseling
CPT/HCPCS: 0241U; 36415; 71045; 80048; 80053; 81001; 82947; 83036; 83735; 85025; 85027; 87077; 87086; 87186; 90686; 93005; 93010; 94640; 94644; 94664; 94760; 94761; 96374; 99285-25; A9270; J1650; J1815; J2920; J2930; J7512; P9612

== ENCOUNTER 2022-03-30 13:23 | Emergency (ER) | payer OTHER ==
[~2022-03-30] VITALS: Ht 175.3 cm; Wt 97.5 kg
[~2022-03-30 13:23] MED LIST changes: +ALPRAZOLAM2 M1 PO; +CALCIUM CARBON650 MG PO; +GUAI600T33 PO; +IBUP800 PO; +Nicoderm Cq1 EAC1 TOP; +ONDA4ODT MM; +PRED20 PO; +SULFAMETHOXAZO1 EAC1 PO; +Vitamin D1000 UNI1 PO
[2022-03-30 14:51] LABS: BASOPHILS ABSOLUTE AUTO 0.06 K/mm3 (0.00-0.23); BASOPHILS PERCENT AUTO 1 % (0-2); EOSINOPHILS PERCENT AUTO 1 % (0-6); Hematocrit 48.9 % (33.0-51.0); Hemoglobin 16.6 g/dL (11.5-16.0); IMMATURE GRAN ABSOLUTE AUTO 0.06 K/mm3 (0.00-0.10); IMMATURE GRAN PERCENT AUTO 1 % (0-1); LYMPHOCYTES ABSOLUTE AUTO 2.89 K/mm3 (0.84-5.20); LYMPHOCYTES PERCENT AUTO 30 % (21-46); MONOCYTES ABSOLUTE AUTO 1.04 K/mm3 (0.16-1.47); MONOCYTES PERCENT AUTO 11 % (4-13); Mean Corpuscular HGB 32.4 pg (26.0-34.0); Mean Corpuscular HGB Conc 33.9 g/dL (31.5-36.5); Mean Corpuscular Volume 95 fL (80-100); Mean Platelet Volume 11.6 fL (9.1-12.4); NEUTROPHILS ABSOLUTE AUTO 5.47 K/mm3 (1.96-9.15); NEUTROPHILS PERCENT AUTO 57 % (41-73); Platelet Count 264 K/mm3 (150-400); RDW Coefficient Variation 12.9 % (11.7-14.2); RDW Standard Deviation 45.3 fL (35.1-46.3); Red Blood Cell Count 5.13 M/mm3 (3.80-5.20); White Blood Cell Count 9.62 K/mm3 (4.00-11.30)
[2022-03-30 15:14] LABS: Albumin, Blood 3.9 g/dL (3.4-5.0); Albumin/Globulin Ratio 0.9 (0.8-1.8); Bilirubin, Total 0.5 mg/dL (0.1-1.0); Bun/Creatinine Ratio 31.2 (12.0-20.0); Calcium, Blood 10.1 mg/dL (8.5-10.1); Creatinine, Blood 0.8 mg/dL (0.40-1.00); Globulin, Blood 4.3 g/dL (2.2-4.0); Potassium, Blood 5.1 mmol/L (3.5-5.5); Total Protein, Blood 8.2 g/dL (6.4-8.2)
[2022-03-30 16:49] LABS: Source, Urine Clean Catch
[2022-03-30 16:55] LABS: Appearance, Urine Clear (Clear); Bilirubin, Urine Neg (Neg); Blood, Urine Neg (Neg); Color, Urine Yellow (P-Yellow); Glucose Qualitative, Urine 3+ (Neg); Ketones, Urine Neg (Neg); Leukocyte Esterase, Urine Neg (Neg); Nitrite, Urine Neg (Neg); Protein, Urine 2+ (Neg); Specific Gravity, Urine 1.025 (1.003-1.022); Urobilinogen, Urine NORM (Normal)
[2022-03-30 17:03] LABS: Bacteria Few /hpf; Red Blood Cells, Urine 0-2 /hpf (0-2); Squamous Epithelial Cells Few /hpf (Few); White Blood Cells, Urine 0-2 /hpf (0-5)
[2022-03-30] MEDS ORDERED: ONDA4 PO (19:50)
== END 2022-03-30 19:55 | disposition home or self-care (01) ==
LOC: ER 13:23
PROVIDERS: Physician Assistant
DX: R11.2 Nausea with vomiting, unspecified (principal); E11.9 Type 2 diabetes mellitus without complications; J44.9 Chronic obstructive pulmonary disease, unspecified; F17.210 Nicotine dependence, cigarettes, uncomplicated; Z79.84 Long term (current) use of oral hypoglycemic drugs; Z79.899 Other long term (current) drug therapy; Z88.8 Allergy status to other drugs, medicaments and biological substances; Z88.5 Allergy status to narcotic agent; Z96.642 Presence of left artificial hip joint
CPT/HCPCS: 80053; 81001; 83690; 85025; A9270; J2405

== ENCOUNTER 2023-07-25 00:13 | Emergency (ER) | payer OTHER ==
[~2023-07-25] VITALS: Ht 175.3 cm; Wt 86.2 kg
[~2023-07-25 00:13] MED LIST changes: +ONDA4 PO
[2023-07-25] MEDS ORDERED: Ondansetron HCl 2 MG / ML 2ML Vial IV ONE (00:20)
[2023-07-25] MEDS ORDERED: HYDROmorphone HCl/Pf 1MG SYR IV ONE (00:20)
[2023-07-25 00:44] LABS: BASOPHILS ABSOLUTE AUTO 0.06 K/mm3 (0.00-0.23); BASOPHILS PERCENT AUTO 1 % (0-2); EOSINOPHILS ABSOLUTE AUTO 0.76 K/mm3 (0.00-0.68); EOSINOPHILS PERCENT AUTO 10 % (0-6); Hematocrit 43.6 % (33.0-51.0); Hemoglobin 13.9 g/dL (11.5-16.0); IMMATURE GRAN ABSOLUTE AUTO 0.02 K/mm3 (0.00-0.10); IMMATURE GRAN PERCENT AUTO 0 % (0-1); LYMPHOCYTES ABSOLUTE AUTO 1.01 K/mm3 (0.84-5.20); LYMPHOCYTES PERCENT AUTO 13 % (21-46); MONOCYTES ABSOLUTE AUTO 0.41 K/mm3 (0.16-1.47); MONOCYTES PERCENT AUTO 5 % (4-13); Mean Corpuscular HGB 30.2 pg (26.0-34.0); Mean Corpuscular HGB Conc 31.9 g/dL (31.5-36.5); Mean Corpuscular Volume 95 fL (80-100); Mean Platelet Volume 10.2 fL (9.1-12.4); NEUTROPHILS PERCENT AUTO 70 % (41-73); Platelet Count 256 K/mm3 (150-400); RDW Coefficient Variation 14.4 % (11.7-14.2); RDW Standard Deviation 48.8 fL (35.1-46.3); White Blood Cell Count 7.66 K/mm3 (4.00-11.30)
[2023-07-25 01:04] LABS: Albumin, Blood 3.2 g/dL (3.4-5.0); Albumin/Globulin Ratio 0.6 (0.8-1.8); Bilirubin, Total 0.3 mg/dL (0.1-1.0); Bun/Creatinine Ratio 14.7 (12.0-20.0); Calcium, Blood 10.2 mg/dL (8.5-10.1); Creatinine, Blood 0.68 mg/dL (0.40-1.00); Globulin, Blood 5.3 g/dL (2.2-4.0); Potassium, Blood 3.9 mmol/L (3.5-5.5); Total Protein, Blood 8.5 g/dL (6.4-8.2)
[2023-07-25 02:20] LABS: Source, Urine Clean Catch
[2023-07-25 02:22] LABS: Bilirubin, Urine Neg (Neg); Blood, Urine Neg (Neg); Glucose Qualitative, Urine 4+ (Neg); Ketones, Urine Neg (Neg); Leukocyte Esterase, Urine Neg (Neg); Nitrite, Urine Neg (Neg); Protein, Urine Neg (Neg); Urobilinogen, Urine NORM (Normal)
[2023-07-25 02:23] LABS: Appearance, Urine Clear (Clear); Color, Urine Yellow (P-Yellow)
[2023-07-25] MEDS ORDERED: RX Prepack 6 Tabs Oxycodone 5mg UD ONE (03:00)
[2023-07-25] MEDS ORDERED: RX Prepack 2 Tabs Ondansetron ODT 4MG UD ONE (03:10)
[2023-07-25 03:25] VITALS: BP 123/75
== END 2023-07-25 03:27 | disposition home or self-care (01) ==
LOC: ER 00:13
PROVIDERS: Emergency Medicine
DX: G89.18 Other acute postprocedural pain (principal); R10.84 Generalized abdominal pain; G43.909 Migraine, unspecified, not intractable, without status migrainosus; E11.9 Type 2 diabetes mellitus without complications; J44.9 Chronic obstructive pulmonary disease, unspecified; F43.10 Post-traumatic stress disorder, unspecified; Z87.891 Personal history of nicotine dependence; Z79.899 Other long term (current) drug therapy; Z79.51 Long term (current) use of inhaled steroids; Z79.84 Long term (current) use of oral hypoglycemic drugs; Z88.8 Allergy status to other drugs, medicaments and biological substances; Z88.5 Allergy status to narcotic agent
CPT/HCPCS: 74177; 80053; 81003; 83605; 83690; 85025; 96374-59; 96375; 99284-25; A9270; J1170; J2405; Q9967

== ENCOUNTER → 2023-09-02 | Outpatient (CLI) | payer OTHER ==
[2023-09-02 15:48] LABS: BASOPHILS ABSOLUTE AUTO 0.06 K/mm3 (0.00-0.23); BASOPHILS PERCENT AUTO 1 % (0-2); EOSINOPHILS ABSOLUTE AUTO 0.37 K/mm3 (0.00-0.68); EOSINOPHILS PERCENT AUTO 5 % (0-6); Hematocrit 45.6 % (33.0-51.0); Hemoglobin 14.9 g/dL (11.5-16.0); IMMATURE GRAN ABSOLUTE AUTO 0.03 K/mm3 (0.00-0.10); IMMATURE GRAN PERCENT AUTO 0 % (0-1); LYMPHOCYTES ABSOLUTE AUTO 1.44 K/mm3 (0.84-5.20); LYMPHOCYTES PERCENT AUTO 19 % (21-46); MONOCYTES ABSOLUTE AUTO 0.57 K/mm3 (0.16-1.47); MONOCYTES PERCENT AUTO 8 % (4-13); Mean Corpuscular HGB Conc 32.7 g/dL (31.5-36.5); Mean Corpuscular Volume 95 fL (80-100); Mean Platelet Volume 10.2 fL (9.1-12.4); NEUTROPHILS ABSOLUTE AUTO 5.13 K/mm3 (1.96-9.15); NEUTROPHILS PERCENT AUTO 68 % (41-73); Platelet Count 261 K/mm3 (150-400)
[2023-09-02 16:11] LABS: Albumin, Blood 3.4 g/dL (3.4-5.0); Albumin/Globulin Ratio 0.8 (0.8-1.8); Bilirubin, Total 0.4 mg/dL (0.1-1.0); Bun/Creatinine Ratio 15.6 (12.0-20.0); Calcium, Blood 9.5 mg/dL (8.5-10.1); Creatinine, Blood 0.77 mg/dL (0.40-1.00); Globulin, Blood 4.4 g/dL (2.2-4.0); Potassium, Blood 4.1 mmol/L (3.5-5.5); Total Protein, Blood 7.8 g/dL (6.4-8.2)
== END ==
LOC: LAB 15:07 → LAB SHORT 15:07
PROVIDERS: Internal Medicine Hematology & Oncology
DX: C22.0 Liver cell carcinoma (principal); D37.6 Neoplasm of uncertain behavior of liver, gallbladder and bile ducts
CPT/HCPCS: 80053; 85025

== ENCOUNTER 2023-11-02 13:16 | Emergency (ER) | payer OTHER ==
[~2023-11-02] VITALS: Ht 175.3 cm; Wt 79.8 kg
[2023-11-02 13:22] VITALS: BP 121/65
== END 2023-11-02 16:46 | disposition home or self-care (01) ==
LOC: ER 13:16
DX: S00.03XA Contusion of scalp, initial encounter (principal); M79.671 Pain in right foot; M25.571 Pain in right ankle and joints of right foot; Z87.891 Personal history of nicotine dependence; G43.909 Migraine, unspecified, not intractable, without status migrainosus; E11.9 Type 2 diabetes mellitus without complications; F43.10 Post-traumatic stress disorder, unspecified; W01.0XXA Fall on same level from slipping, tripping and stumbling without subsequent striking against object, initial encounter; Z79.84 Long term (current) use of oral hypoglycemic drugs; Z79.51 Long term (current) use of inhaled steroids; Z79.899 Other long term (current) drug therapy; Z88.5 Allergy status to narcotic agent; Z88.8 Allergy status to other drugs, medicaments and biological substances
CPT/HCPCS: 29515; 70450; 73562-RT; 73610; 73630; 99284-25

== ENCOUNTER 2024-02-03 07:32 | Emergency (ER) | payer OTHER ==
[~2024-02-03] VITALS: Ht 172.7 cm; Wt 77.1 kg
[2024-02-03 08:22] LABS: BASOPHILS ABSOLUTE AUTO 0.04 K/mm3 (0.00-0.23); BASOPHILS PERCENT AUTO 1 % (0-2); EOSINOPHILS ABSOLUTE AUTO 0.06 K/mm3 (0.00-0.68); EOSINOPHILS PERCENT AUTO 1 % (0-6); Hematocrit 51.6 % (33.0-51.0); Hemoglobin 17.2 g/dL (11.5-16.0); IMMATURE GRAN ABSOLUTE AUTO 0.02 K/mm3 (0.00-0.10); IMMATURE GRAN PERCENT AUTO 0 % (0-1); LYMPHOCYTES ABSOLUTE AUTO 1.12 K/mm3 (0.84-5.20); LYMPHOCYTES PERCENT AUTO 15 % (21-46); MONOCYTES ABSOLUTE AUTO 0.43 K/mm3 (0.16-1.47); MONOCYTES PERCENT AUTO 6 % (4-13); Mean Corpuscular HGB 31.4 pg (26.0-34.0); Mean Corpuscular HGB Conc 33.3 g/dL (31.5-36.5); Mean Corpuscular Volume 94 fL (80-100); Mean Platelet Volume 10.3 fL (9.1-12.4); NEUTROPHILS ABSOLUTE AUTO 5.69 K/mm3 (1.96-9.15); NEUTROPHILS PERCENT AUTO 77 % (41-73); Platelet Count 244 K/mm3 (150-400); RDW Coefficient Variation 14.1 % (11.7-14.2); RDW Standard Deviation 49.1 fL (35.1-46.3); Red Blood Cell Count 5.47 M/mm3 (3.80-5.20); White Blood Cell Count 7.36 K/mm3 (4.00-11.30)
[2024-02-03] MEDS ORDERED: Ondansetron HCl 2 MG / ML 2ML Vial IV ONE (08:30)
[2024-02-03] MEDS ORDERED: HYDROmorphone HCl/Pf 1MG SYR IV ONE (08:30)
[2024-02-03] MEDS ORDERED: NS 1,000 ML IV SCH (08:30)
[2024-02-03 08:31] LABS: Albumin, Blood 3.2 g/dL (3.4-5.0); Albumin/Globulin Ratio 0.7 (0.8-1.8); Bilirubin, Total 0.5 mg/dL (0.1-1.0); Bun/Creatinine Ratio 21.9 (12.0-20.0); Calcium, Blood 9.7 mg/dL (8.5-10.1); Creatinine, Blood 0.64 mg/dL (0.40-1.00); Globulin, Blood 4.8 g/dL (2.2-4.0); Potassium, Blood 4.3 mmol/L (3.5-5.5)
[2024-02-03 09:20] LABS: Source, Urine Straight Cath
[2024-02-03 09:24] LABS: Appearance, Urine Clear (Clear); Bilirubin, Urine Neg (Neg); Blood, Urine Neg (Neg); Color, Urine Yellow (P-Yellow); Glucose Qualitative, Urine 4+ (Neg); Ketones, Urine 2+ (Neg); Leukocyte Esterase, Urine Neg (Neg); Nitrite, Urine Neg (Neg); Protein, Urine 1+ (Neg); Urobilinogen, Urine NORM (Normal)
[2024-02-03 10:02] VITALS: BP 126/74
[2024-02-03] MEDS ORDERED: DICY20 PO (10:33)
[2024-02-03] MEDS ORDERED: Dicyclomine HCl 20 MG Tab PO ONE (10:35)
== END 2024-02-03 10:42 | disposition home or self-care (01) ==
LOC: ER 07:32
PROVIDERS: Emergency Medicine
DX: A08.4 Viral intestinal infection, unspecified (principal); E11.9 Type 2 diabetes mellitus without complications; G43.909 Migraine, unspecified, not intractable, without status migrainosus; F43.10 Post-traumatic stress disorder, unspecified; F17.200 Nicotine dependence, unspecified, uncomplicated; Z88.5 Allergy status to narcotic agent; Z88.8 Allergy status to other drugs, medicaments and biological substances; Z79.52 Long term (current) use of systemic steroids; Z79.84 Long term (current) use of oral hypoglycemic drugs; Z79.899 Other long term (current) drug therapy
CPT/HCPCS: 74177; 80053; 83605; 83690; 84484; 85025; 93005; 93010; 96361; 96374-59; 96375; 99284-25; A9270; J1171; J2405; J7030; Q9967

== ENCOUNTER 2024-02-26 11:40 | Emergency (ER) | payer OTHER ==
[~2024-02-26] VITALS: Ht 175.3 cm; Wt 79.4 kg
[~2024-02-26 11:40] MED LIST changes: +DICY20 PO
[2024-02-26 12:52] LABS: BASOPHILS ABSOLUTE AUTO 0.02 K/mm3 (0.00-0.23); BASOPHILS PERCENT AUTO 0 % (0-2); EOSINOPHILS PERCENT AUTO 0 % (0-6); Hematocrit 48.9 % (33.0-51.0); Hemoglobin 16.9 g/dL (11.5-16.0); IMMATURE GRAN ABSOLUTE AUTO 0.03 K/mm3 (0.00-0.10); IMMATURE GRAN PERCENT AUTO 0 % (0-1); LYMPHOCYTES ABSOLUTE AUTO 1.14 K/mm3 (0.84-5.20); LYMPHOCYTES PERCENT AUTO 12 % (21-46); MONOCYTES ABSOLUTE AUTO 0.26 K/mm3 (0.16-1.47); MONOCYTES PERCENT AUTO 3 % (4-13); Mean Corpuscular HGB 32.1 pg (26.0-34.0); Mean Corpuscular HGB Conc 34.6 g/dL (31.5-36.5); Mean Corpuscular Volume 93 fL (80-100); Mean Platelet Volume 10.6 fL (9.1-12.4); NEUTROPHILS ABSOLUTE AUTO 8.27 K/mm3 (1.96-9.15); NEUTROPHILS PERCENT AUTO 85 % (41-73); Platelet Count 211 K/mm3 (150-400); RDW Coefficient Variation 13.4 % (11.7-14.2); RDW Standard Deviation 45.7 fL (35.1-46.3); Red Blood Cell Count 5.26 M/mm3 (3.80-5.20); White Blood Cell Count 9.72 K/mm3 (4.00-11.30)
[2024-02-26 16:54] LABS: Source, Urine Clean Catch
[2024-02-26 16:59] LABS: Appearance, Urine Clear (Clear); Bilirubin, Urine Neg (Neg); Blood, Urine Neg (Neg); Color, Urine Yellow (P-Yellow); Glucose Qualitative, Urine 4+ (Neg); Ketones, Urine Neg (Neg); Leukocyte Esterase, Urine Neg (Neg); Nitrite, Urine Neg (Neg); Protein, Urine 1+ (Neg); Urobilinogen, Urine NORM (Normal)
[2024-02-26] MEDS ORDERED: FentaNYL Citrate 50 MCG/ML 2 ML Injection IV ONE ×3 (17:00→21:35)
[2024-02-26] MEDS ORDERED: NS 1,000 ML IV SCH ×2 (17:00→18:40)
[2024-02-26 17:11] LABS: Albumin, Blood 3.3 g/dL (3.4-5.0); Albumin/Globulin Ratio 0.7 (0.8-1.8); Bilirubin, Total 0.3 mg/dL (0.1-1.0); Calcium, Blood 9.8 mg/dL (8.5-10.1); Creatinine, Blood 0.79 mg/dL (0.40-1.00); Globulin, Blood 4.7 g/dL (2.2-4.0); Potassium, Blood 3.9 mmol/L (3.5-5.5)
[2024-02-26] MEDS ORDERED: Ondansetron HCl 2 MG / ML 2ML Vial IV ONE (17:15)
[2024-02-26] MEDS ORDERED: LORazepam 2 MG/ML 1ML Injection ONE (20:29)
[2024-02-26] MEDS ORDERED: LORazepam 2 MG/ML 1ML Injection IV ONE (20:35)
[2024-02-26 22:14] LABS: Base Excess Venous 7.7 mmol/L; Bicarbonate Venous 30.4 mmol/L (24.0-30.0); PCO2 Venous 44.3 mmHg (38-42); pH Blood Venous 7.46 (7.34-7.37)
[2024-02-26 22:57] VITALS: BP 117/67
== END 2024-02-26 23:03 | disposition home or self-care (01) ==
LOC: ER 11:40
PROVIDERS: Physician Assistant; Student in an Organized Health Care Education/Training Program
DX: R10.84 Generalized abdominal pain (principal); R11.2 Nausea with vomiting, unspecified; E87.20 Acidosis, unspecified; E11.42 Type 2 diabetes mellitus with diabetic polyneuropathy; F43.10 Post-traumatic stress disorder, unspecified; J44.9 Chronic obstructive pulmonary disease, unspecified; G43.909 Migraine, unspecified, not intractable, without status migrainosus; Z87.891 Personal history of nicotine dependence; Z79.51 Long term (current) use of inhaled steroids; Z79.899 Other long term (current) drug therapy; Z79.84 Long term (current) use of oral hypoglycemic drugs; Z88.5 Allergy status to narcotic agent; Z88.8 Allergy status to other drugs, medicaments and biological substances
CPT/HCPCS: 74177; 80053; 82010; 82803; 82947; 83605; 85025; 93005; 93010; 96361; 96374-59; 96375; 96376; 99284-25; J2060; J2405; J3010; J7030; Q9967

== ENCOUNTER 2024-04-19 23:14 | Emergency (ER) | payer MEDICARE, OTHER ==
[~2024-04-19] VITALS: Ht 172.7 cm; Wt 81.7 kg
[~2024-04-19 23:14] MED LIST changes: +FENTANYL1 EA12 TOP; +HYDHCL25; +NALOXONE HCL4 MG; +STEGLATRO5 MG PO; +TIOT18 INH; +VSL#3 112.5B1 EACH PO
[2024-04-19] MEDS ORDERED: Ondansetron HCl 2 MG / ML 2ML Vial IV PRN (23:40)
[2024-04-20 00:57] LABS: BASOPHILS ABSOLUTE AUTO 0.05 K/mm3 (0.00-0.23); BASOPHILS PERCENT AUTO 1 % (0-2); EOSINOPHILS ABSOLUTE AUTO 0.12 K/mm3 (0.00-0.68); EOSINOPHILS PERCENT AUTO 1 % (0-6); Hematocrit 48.9 % (33.0-51.0); Hemoglobin 16.6 g/dL (11.5-16.0); IMMATURE GRAN ABSOLUTE AUTO 0.03 K/mm3 (0.00-0.10); IMMATURE GRAN PERCENT AUTO 0 % (0-1); LYMPHOCYTES ABSOLUTE AUTO 1.47 K/mm3 (0.84-5.20); LYMPHOCYTES PERCENT AUTO 15 % (21-46); MONOCYTES ABSOLUTE AUTO 0.48 K/mm3 (0.16-1.47); MONOCYTES PERCENT AUTO 5 % (4-13); Mean Corpuscular HGB 31.9 pg (26.0-34.0); Mean Corpuscular HGB Conc 33.9 g/dL (31.5-36.5); Mean Corpuscular Volume 94 fL (80-100); Mean Platelet Volume 10.4 fL (9.1-12.4); NEUTROPHILS ABSOLUTE AUTO 8.01 K/mm3 (1.96-9.15); NEUTROPHILS PERCENT AUTO 79 % (41-73); Platelet Count 215 K/mm3 (150-400); RDW Coefficient Variation 13.9 % (11.7-14.2); RDW Standard Deviation 47.8 fL (35.1-46.3); White Blood Cell Count 10.16 K/mm3 (4.00-11.30)
[2024-04-20 01:03] LABS: Source, Urine Clean Catch
[2024-04-20 01:05] LABS: Bilirubin, Urine Neg (Neg); Blood, Urine Neg (Neg); Glucose Qualitative, Urine 4+ (Neg); Ketones, Urine Neg (Neg); Leukocyte Esterase, Urine Neg (Neg); Nitrite, Urine Neg (Neg); Protein, Urine Neg (Neg); Specific Gravity, Urine 1.015 (1.003-1.022); Urobilinogen, Urine NORM (Normal)
[2024-04-20 01:06] LABS: Appearance, Urine Clear (Clear); Color, Urine Yellow (P-Yellow)
[2024-04-20 01:15] LABS: Albumin, Blood 3.3 g/dL (3.4-5.0); Albumin/Globulin Ratio 0.8 (0.8-1.8); Bilirubin, Total 0.3 mg/dL (0.1-1.0); Bun/Creatinine Ratio 24.2 (12.0-20.0); Creatinine, Blood 0.75 mg/dL (0.40-1.00); Globulin, Blood 4.3 g/dL (2.2-4.0); Total Protein, Blood 7.6 g/dL (6.4-8.2)
[2024-04-20] MEDS ORDERED: Metoclopramide HCl 5MG / ML 2ML Vial IV ONE (01:45)
[2024-04-20] MEDS ORDERED: Haloperidol Lactate Inj. 5 MG/ML Injection IV ONE (03:05)
[2024-04-20 04:00] VITALS: BP 135/115
[2024-04-20] MEDS ORDERED: METO5A PO (04:58)
== END 2024-04-20 05:03 | disposition home or self-care (01) ==
LOC: ER 23:14
PROVIDERS: Student in an Organized Health Care Education/Training Program
DX: R10.84 Generalized abdominal pain (principal); R11.2 Nausea with vomiting, unspecified; E11.9 Type 2 diabetes mellitus without complications; J44.9 Chronic obstructive pulmonary disease, unspecified; Z88.8 Allergy status to other drugs, medicaments and biological substances; Z88.5 Allergy status to narcotic agent; Z88.6 Allergy status to analgesic agent; Z79.899 Other long term (current) drug therapy; Z79.51 Long term (current) use of inhaled steroids; Z79.84 Long term (current) use of oral hypoglycemic drugs; Z79.02 Long term (current) use of antithrombotics/antiplatelets; Z79.891 Long term (current) use of opiate analgesic
CPT/HCPCS: 74018; 74177; 80053; 81003; 83690; 85025; 96374-59; 96375; 99284-25; J1630; J2405; J2765; Q9967

== ENCOUNTER 2024-04-22 08:39 | Inpatient (IN) | payer MEDICARE, OTHER ==
[~2024-04-22] VITALS: Ht 172.7 cm; Wt 77.1 kg
[~2024-04-22 08:39] MED LIST changes: +METO5A PO
[2024-04-22 09:06] LABS: BASOPHILS ABSOLUTE AUTO 0.02 K/mm3 (0.00-0.23); BASOPHILS PERCENT AUTO 0 % (0-2); EOSINOPHILS ABSOLUTE AUTO 0.02 K/mm3 (0.00-0.68); EOSINOPHILS PERCENT AUTO 0 % (0-6); Hematocrit 53.2 % (33.0-51.0); Hemoglobin 18.1 g/dL (11.5-16.0); IMMATURE GRAN ABSOLUTE AUTO 0.02 K/mm3 (0.00-0.10); IMMATURE GRAN PERCENT AUTO 0 % (0-1); LYMPHOCYTES ABSOLUTE AUTO 1.21 K/mm3 (0.84-5.20); LYMPHOCYTES PERCENT AUTO 13 % (21-46); MONOCYTES ABSOLUTE AUTO 0.51 K/mm3 (0.16-1.47); MONOCYTES PERCENT AUTO 5 % (4-13); Mean Corpuscular HGB 31.6 pg (26.0-34.0); Mean Corpuscular Volume 93 fL (80-100); Mean Platelet Volume 10.1 fL (9.1-12.4); NEUTROPHILS ABSOLUTE AUTO 7.67 K/mm3 (1.96-9.15); NEUTROPHILS PERCENT AUTO 81 % (41-73); Platelet Count 204 K/mm3 (150-400); RDW Coefficient Variation 13.9 % (11.7-14.2); RDW Standard Deviation 47.6 fL (35.1-46.3); Red Blood Cell Count 5.73 M/mm3 (3.80-5.20); White Blood Cell Count 9.45 K/mm3 (4.00-11.30)
[2024-04-22 09:19] LABS: Albumin, Blood 3.3 g/dL (3.4-5.0); Albumin/Globulin Ratio 0.8 (0.8-1.8); Bilirubin, Total 0.8 mg/dL (0.1-1.0); Bun/Creatinine Ratio 24.2 (12.0-20.0); Calcium, Blood 8.9 mg/dL (8.5-10.1); Creatinine, Blood 0.83 mg/dL (0.40-1.00); Total Protein, Blood 7.3 g/dL (6.4-8.2)
[2024-04-22] MEDS ORDERED: HYDROmorphone HCl/Pf 1MG SYR IV PRN (09:20)
[2024-04-22] MEDS ORDERED: NS 1,000 ML IV ONE (09:45)
[2024-04-22] MEDS ORDERED: Potassium Chloride 40 MEQ in NS 250 ML IV ONE (09:45)
[2024-04-22] MEDS ORDERED: Ondansetron HCl 2 MG / ML 2ML Vial IV PRN (15:10)
[2024-04-22] MEDS ORDERED: Prochlorperazine Edisylate 10 mg Vial IV PRN (15:10)
[2024-04-22] MEDS ORDERED: Polyethylene Glycol 3350 17 gm PO PRN (15:10)
[2024-04-22] MEDS ORDERED: Lactated Ringer's 1,000 ML IV SCH (15:10)
[2024-04-22] MEDS ORDERED: FLU VACC TS2024-25(6MOS UP)/PF 45 MCG/0.5 ML SYRINGE IM PRN (15:10)
[2024-04-22] MEDS ORDERED: Albuterol 2.5 MG/3 ML VIAL INH PRN (15:15)
[2024-04-22] MEDS ORDERED: ALPRAZolam 0.5 MG Tab PO PRN (15:15)
[2024-04-22] MEDS ORDERED: Tiotropium Bromide 2.5 MCG/ACT MIST INHAL (10 ACT/4 GM) INH SCH (15:15)
[2024-04-22] MEDS ORDERED: Insulin Human Lispro 100 Units/ML 3ML Syringe SC SCH (16:30)
[2024-04-22 17:00] VITALS: BP 127/80
[2024-04-22] MEDS ORDERED: OXYC10TA19 PO (17:04)
--- NOTE | 2024-04-22 18:23 | NUR ---
ADMISSION NOTE: PATIENT ARRIVES TO ROOM VIA GURNEY AT 1655 FROM ER FOR DX'S OF ACUTE GASTROENTERITIS. PATIENT TRANSFERRED TO BED c SBA. PATIENT ORIENTATED TO ROOM AND CALL SYSTEM. ADMISSION VITALS TAKEN. ADMISSION, MEDRIC AND SKIN ASSESSMENT COMPLETED. PATIENT REPORTS PAIN 5/10 "ALL OVER" AND NAUSEOUS. PATIENT MEDICATED FOR PAIN AND NAUSEA c GOOD EFFECT. PATIENT REPORTS SHE WAS DIAGNOSED c HEPATOCELLULAR CARCINOMA BACK IN 2023, DR. HERNANDEZ (ONCOLOGY) FOLLOWING HER CARE. PATIENT ALSO REPORTS LAST [facility]TRUDA THERAPY TX WAS 04/17/24. PATIENT ON CL DIET. PATIENT A/OX4, PLEASANT AND COOPERATIVE c CARE. PATIENT HAS PIV TO RAC INFUSING LR AT 100 MLS/HR. CALL LIGHT IN REACH.
[2024-04-22 19:22] VITALS: BP 118/73
[2024-04-22] MEDS ORDERED: QUEtiapine Fumarate 200 MG Tab PO SCH (21:00)
[2024-04-22] MEDS ORDERED: Gabapentin 300 MG Cap PO SCH (21:00)
[2024-04-22] MEDS ORDERED: Sennosides 8.6 MG Tab PO SCH (21:00)
[2024-04-22] MEDS ORDERED: Famotidine 20 MG Tab PO SCH (21:00)
[2024-04-23 05:00] LABS: BASOPHILS ABSOLUTE AUTO 0.05 K/mm3 (0.00-0.23); BASOPHILS PERCENT AUTO 1 % (0-2); EOSINOPHILS ABSOLUTE AUTO 0.24 K/mm3 (0.00-0.68); EOSINOPHILS PERCENT AUTO 3 % (0-6); Hematocrit 45.4 % (33.0-51.0); Hemoglobin 15.1 g/dL (11.5-16.0); IMMATURE GRAN ABSOLUTE AUTO 0.02 K/mm3 (0.00-0.10); IMMATURE GRAN PERCENT AUTO 0 % (0-1); LYMPHOCYTES ABSOLUTE AUTO 2.06 K/mm3 (0.84-5.20); LYMPHOCYTES PERCENT AUTO 28 % (21-46); MONOCYTES ABSOLUTE AUTO 0.62 K/mm3 (0.16-1.47); MONOCYTES PERCENT AUTO 8 % (4-13); Mean Corpuscular HGB 31.9 pg (26.0-34.0); Mean Corpuscular HGB Conc 33.3 g/dL (31.5-36.5); Mean Corpuscular Volume 96 fL (80-100); Mean Platelet Volume 10.4 fL (9.1-12.4); NEUTROPHILS ABSOLUTE AUTO 4.45 K/mm3 (1.96-9.15); NEUTROPHILS PERCENT AUTO 60 % (41-73); Platelet Count 152 K/mm3 (150-400); RDW Coefficient Variation 13.8 % (11.7-14.2); RDW Standard Deviation 48.8 fL (35.1-46.3); Red Blood Cell Count 4.74 M/mm3 (3.80-5.20); White Blood Cell Count 7.44 K/mm3 (4.00-11.30)
[2024-04-23 05:15] VITALS: BP 122/81
[2024-04-23 05:23] LABS: Bun/Creatinine Ratio 21.8 (12.0-20.0); Calcium, Blood 8.2 mg/dL (8.5-10.1); Creatinine, Blood 0.69 mg/dL (0.40-1.00); Potassium, Blood 3.6 mmol/L (3.5-5.5)
[2024-04-23 08:27] VITALS: BP 119/80
[2024-04-23] MEDS ORDERED: Enoxaparin 40 MG/0.4 ML SYR SC SCH (09:00)
[2024-04-23] MEDS ORDERED: OxyCODONE HCL 5 MG TAB PO PRN (11:55)
[2024-04-23] MEDS ORDERED: HYDROmorphone HCl/Pf 1MG SYR IV PRN (12:10)
--- NOTE | 2024-04-23 15:52 | NUR ---
SHIFT SUMMARY: PATIENT A/OX4, PLEASANT AND COOPERATIVE c CARE. PATIENT DENIES CP/PRESSURE, SOB, N/V AND DIZZINESS. PATIENT REPORTS PAIN TO ABDOMEN, MEDICATED FOR PAIN PER EMAR c GOOD EFFECT. PATIENT STARTED ON FL DIET AT LUNCH, ATE 100%, TOLERATING WELL. PATIENT CONTINENT OF BLADDER, USES BSC c SBA. PATIENT REPORTS L UPPER TOOTH ABSCESS, PLACED A CONSULT c HYGIENIST. VITAL SIGNS REVIEWED. PIV TO RAC INFUSING LR AT 100 MLS/HR. PATIENT HAS HAD NO COMPLAINTS OR DENIES NEW CONCERNED THIS SHIFT. CALL LIGHT IN REACH.
[2024-04-23 16:07] VITALS: BP 118/97
--- NOTE | 2024-04-23 16:22 | NUR ---
ADDITIONAL NOTE: PATIENT CALLED AND REPORTS THAT HER L UPPER TOOTH ABSCESS "RUPTURED". PATIENT STATED, "THE PUSS CAME OUT, I RINSE MY MOUTH c MOUTHWASH AND THERE IS SMALL BLOOD IN THE TISSUE WHEN I WIPE." ASSESS PATIENT MOUTH, L UPPER GUM LINE IS SWOLLEN. NOTIFIED DR. ESCALERA, PER DR. ESCALERA SHE WILL ORDERED IV ABX.
[2024-04-23] MEDS ORDERED: Amoxicillin/Clavulanate K 500 MG Tab PO SCH (17:00)
[2024-04-23 19:15] VITALS: BP 117/79
[2024-04-23] MEDS ORDERED: Lactobacil 2-S.Thermo-Bifido 1 1 Cap PO SCH (21:00)
[2024-04-24 02:56] VITALS: BP 110/71
--- NOTE | 2024-04-24 03:40 | NUR ---
SHIFT SUMMARY PT ALERT ORIENTED X 4 ABLE TO VERBALIZE NEEDS GETS UP TO COMMODE AD RAMIRO. C/O ABDOMEN PAIN MEDICATED WITH OXYCODONE AND DILAUDID WITH GOOD RELIEF. REMAINS ON LR AT 100. VOIDING WELL. NO NAUSEA OR VOMITING THIS SHIFT. SHE HAS BEEN TOLERATING A FULL LIQUID DIET HIS SHIFT WITH NO C/O NAUSEA OR VOMITING. REMAINS ON AUGMENTIN FOR THE TOOTH ABCESS. THERES A CONSULT ORDER FOR THE HYGIENIST. VSS SATTING AT 99 ON RA. RESTING IN BED AT THIS TIME WITH CALL LIGHT IN REACH
[2024-04-24 05:42] LABS: Bun/Creatinine Ratio 14.4 (12.0-20.0); Calcium, Blood 8.3 mg/dL (8.5-10.1); Creatinine, Blood 0.63 mg/dL (0.40-1.00); Potassium, Blood 3.3 mmol/L (3.5-5.5)
[2024-04-24 07:45] VITALS: BP 107/67
[2024-04-24] MEDS ORDERED: Potassium Chloride 20 MEQ TabCR PO ONE (08:00)
[2024-04-24 15:20] VITALS: BP 136/85
[2024-04-24] MEDS ORDERED: Thiamine HCl 100 MG Tab PO SCH (16:05)
--- NOTE | 2024-04-24 17:35 | NUR ---
PT CONT LEVEL OF CARE WITH NO ACUTE CHANGES NOTED. PT REMAINS A&O X4 AND IND IN ROOM. PT CONT TO VOICE C/O ABD PAIN AND HAS BEEN MEDICATED PER EMAR SEVERAL TIMES THIS SHIFT. PT CONT TO REMAIN FULL LIQUID DIET AND STATES HER ABD HURTS WORSE AFTER SHE EATS.
[2024-04-24 19:59] VITALS: BP 146/100
[2024-04-24] MEDS ORDERED: Nicotine 21 MG PATCH TOP ONE (20:05)
[2024-04-25 03:51] VITALS: BP 107/68
[2024-04-25 07:32] VITALS: BP 106/75
[2024-04-25] MEDS ORDERED: Multivitamins 1 Tab PO SCH (09:00)
[2024-04-25] MEDS ORDERED: Nicotine 21 MG PATCH TOP SCH (09:00)
[2024-04-25] MEDS ORDERED: AMOCLA500 PO (12:25)
[2024-04-25] MEDS ORDERED: B-1100 M1 PO (12:26)
[2024-04-25] MEDS ORDERED: MIRALAX17 GM PO (12:26)
[2024-04-25] MEDS ORDERED: VISBIOME 112.51 EACH PO (12:27)
[2024-04-25] MEDS ORDERED: PANT20 PO (12:27)
--- NOTE | 2024-04-25 14:10 | NUR ---
DISCHARGE SUMMARY PATIENT EDUCATION PACKET PRINTED AND REVIEWED WITH PATIENT. MEDICATION LIST AND INSTRUCTIONS FAXED TO [facility] [phone]. [facility] ALL QUESTIONS ANSWERED. IV REMOVED BY SUNNI VARGAS.
== END 2024-04-25 13:24 | disposition home or self-care (01) | DRG 391 ==
LOC: ER 08:39 → MEDS 08:40
PROVIDERS: Student in an Organized Health Care Education/Training Program; ADMIT Internal Medicine
DX: K52.9 Noninfective gastroenteritis and colitis, unspecified (principal); E43 Unspecified severe protein-calorie malnutrition; E87.1 Hypo-osmolality and hyponatremia; C22.8 Malignant neoplasm of liver, primary, unspecified as to type; G43.909 Migraine, unspecified, not intractable, without status migrainosus; F32.A Depression, unspecified; F43.10 Post-traumatic stress disorder, unspecified; F41.9 Anxiety disorder, unspecified; E11.42 Type 2 diabetes mellitus with diabetic polyneuropathy; J44.9 Chronic obstructive pulmonary disease, unspecified; Z96.642 Presence of left artificial hip joint; Z96.662 Presence of left artificial ankle joint; F15.90 Other stimulant use, unspecified, uncomplicated; E87.6 Hypokalemia; K29.90 Gastroduodenitis, unspecified, without bleeding; K04.7 Periapical abscess without sinus; K59.09 Other constipation; K57.30 Diverticulosis of large intestine without perforation or abscess without bleeding; Z51.12 Encounter for antineoplastic immunotherapy; Z88.5 Allergy status to narcotic agent; Z88.8 Allergy status to other drugs, medicaments and biological substances; Z79.899 Other long term (current) drug therapy; Z85.3 Personal history of malignant neoplasm of breast; Z90.89 Acquired absence of other organs; Z98.890 Other specified postprocedural states; Z87.891 Personal history of nicotine dependence; Z90.710 Acquired absence of both cervix and uterus; Z79.51 Long term (current) use of inhaled steroids
CPT/HCPCS: 36415; 71045; 74177; 80048; 80053; 82140; 82248; 82947; 83605; 83690; 84100; 84132; 84484; 85025; 93005; 93010; 94640; 94664; 94760; 96365-59; 96366; 96372; 96375; 96376; 99285-25; A9270; G0378; J1171; J1650; J2405; J3480; J7030; J7050; J7120; Q9967